=== PATIENT | male | born 1935 | race Caucasian/White ===

== ENCOUNTER 2017-02-28 07:03 | Inpatient (IN) ==
--- NOTE | 2017-02-22 11:46 | EKG Report ---
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
[2017-02-22 12:18] LABS: Basophils # 0.1 10*3/uL (0.0-0.2); Basophils % 0.8 % (0.0-0.8); Eosinophils # 0.3 10*3/uL (0.0-0.87); Eosinophils % 5.1 % (0.00-10.9); Hematocrit 38.6 VOL% (42.0-52.0); Hemoglobin 13.1 GM/DL (14.0-18.0); Immature Granulocytes % 0.2 %; Immature Granulocytes Absolute 0.01 #; Lymphocytes # 1.5 10*3/uL (1.4-4.0); Lymphocytes % 23.2 % (21.2-54.2); Mean Corpuscular HGB Conc 33.9 GM/DL (32-36); Mean Corpuscular Hemoglobin 31 PG (27-34); Mean Corpuscular Volume 91.7 FL (87-102); Mean Platelet Volume 10.5 FL (9.6-12.0); Monocytes # 0.5 10*3/uL (0.11-0.8); Monocytes % 7.8 % (1.7-12.7); Neutrophils % 62.9 % (38.7-73.9); Platelet Count 143 T/CUMM (130-400); Red Blood Count 4.21 MC/CUMM (3.8-5.5); Red Cell Distribution Width 14.6 % (9.3-17.3); White Blood Count 6.3 T/CUMM (4-12)
[2017-02-22 13:04] LABS: Albumin 3.7 G/DL (3.4-5.0); Bilirubin,Total 0.6 MG/DL (0.2-1.0); Calcium 8.9 MG/DL (8.5-10.1); Total Protein 7.7 G/DL (6.4-8.3)
[2017-02-22 13:05] LABS: Osmolality,Calculated 281.3 MOS/KG (273-304); Potassium 4.1 MMOL/L (3.5-5.1)
[2017-02-28] MEDS ORDERED: LORazepam 1 MG TABLET PO ONE (07:15)
[2017-02-28 07:29] LABS: INR 1.1; PT Patient Result 11.7 SECS
--- NOTE | 2017-02-28 07:53 | History and Physical Update ---
History and Physical Update - Physical Exam History and Physical Changes: We note an area that appears to be perhaps an insect bite that has been scratched on the anterior midline of the neck this will be away from the incision it does not appear to be actively infection nor does it appear to be anything associated with shingles. I will proceed with the surgery today a left carotid endarterectomy
[2017-02-28] MEDS ORDERED: ceFAZolin 1,000 MG VIAL ONE (08:02)
[2017-02-28] MEDS ORDERED: SODIUM CHLORIDE 0.9% 100 ML IV ONE (08:03)
[2017-02-28] MEDS ORDERED: LORazepam 1 MG TABLET ONE ×2 (08:03→08:24)
--- NOTE | 2017-02-28 08:43 | XRay Report ---
History: COPD. Pacemaker Date: 02/28/2017 Study: Chest x-ray AP portable Comparison exam: March 26, 2009 chest x-ray The cardiac silhouette is borderline prominent. There is no mediastinal mass. The patient is status post prior median sternotomy. A left subclavian dual-lead transvenous pacemaker is in place and is generally intact. There is no gross pleural effusion. There are some probable scattered emphysematous changes. There is no acute infiltrate. The osseous structures are similar. Impression: No definite acute process compared to the previous study. Pacemaker as before PROCEDURE INTERPRETED AT [facility] DEPARTMENT OF RADIOLOGY Final Report Signed by: Dr. Raisa Ewing
[2017-02-28] MEDS: LACTATED RINGERS 1,000 ML IV SCH ×3 (09:11→21:14)
[2017-02-28] MEDS ORDERED: VANCOMYCIN 500 MG VIAL ONE (09:25)
[2017-02-28] MEDS ORDERED: HEPARIN 5,000 UNIT/1 ML VIAL ONE (09:25)
[2017-02-28] MEDS ORDERED: MIDAZOLAM 2 MG/2 ML VIAL ONE (09:42)
[2017-02-28] MEDS ORDERED: MIDAZOLAM 2 MG/2 ML VIAL IV ONE (09:59)
[2017-02-28] MEDS ORDERED: PROPOFOL 200 MG/20 ML VIAL IV ONE (10:50)
[2017-02-28] MEDS ORDERED: NEOSTIGMINE 10 MG/10 ML VIAL ONE (10:50)
[2017-02-28] MEDS ORDERED: LIDOCAINE 1% 5 ML VIAL ONE (10:50)
[2017-02-28] MEDS ORDERED: SUCCINYLCHOLINE 200 MG/10 ML VIAL ONE (10:50)
[2017-02-28] MEDS ORDERED: ROCURONIUM 100 MG/10 ML VIAL IV ONE (10:50)
[2017-02-28] MEDS ORDERED: PHENYLEPHRINE 20 MG/250 ML PREMIX IV ONE (10:50)
[2017-02-28] MEDS ORDERED: HEPARIN 10,000 UNIT/10 ML VIAL ONE (10:50)
[2017-02-28] MEDS ORDERED: NITROGLYCERIN 50 MG/250 ML BOTTLE IV ONE (10:50)
[2017-02-28] MEDS ORDERED: ONDANSETRON 4 MG/2 ML VIAL ONE (10:50)
[2017-02-28] MEDS ORDERED: GLYCOPYRROLATE 0.4 MG/2 ML VIAL ONE (10:50)
[2017-02-28] MEDS ORDERED: DEXTROSE 50% 25 GM/50 ML VIAL IV PRN (12:07)
[2017-02-28] MEDS ORDERED: DOPamine 800 MG/250 ML PREMIX IV PRN (12:07)
[2017-02-28] MEDS ORDERED: HYDROmorphone 2 MG/1 ML VIAL IV PRN (12:07)
[2017-02-28] MEDS ORDERED: PROMETHAZINE 25 MG/1 ML VIAL IM PRN (12:07)
[2017-02-28] MEDS ORDERED: GLUCAGON 1 MG VIAL IM PRN (12:07)
[2017-02-28] MEDS ORDERED: oxyCODONE/ACETAMINOPHEN 5-325 MG TABLET PO PRN ×2 (12:07)
--- NOTE | 2017-02-28 12:15 | Operative Note ---
Date of procedure: 02/28/17 Procedure: Dr. Laws operative report Jose Galicia. 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 I have offered left carotid endarterectomy have explained the alternatives risks and complications which he understands and accepts Description of the procedure: After the induction of general endotracheal anesthesia the patient was placed in supine position with his neck modestly extended and turned to the right his left neck is prepped with ChloraPrep and Ioban and draped in the usual fashion I made a somewhat horizontal incision in a skin crease below the angle of the mandible this is carried into the subcu cutaneous tissue in the subplatysmal space I then dissected along the anterior border of the sternocleidomastoid muscle anterior facial vein was doubly ligated hemoclipped and divided I then dissected anterior to the internal jugular vein locating the common carotid artery which was controlled with a maxi vessel loop. Patient received 5000 units of intravenous heparin and dissection was carried along the common carotid past the diseased bifurcation to the more normal distal internal and external carotid arteries these were controlled with Vesseloops as well hypoglossal nerve was identified and protected as was the ansa hypoglossi. With adequate anticoagulation the vessel loops were brought up to control the artery and a longitudinal arteriotomy was made from the common carotid through the diseased bifurcation to the more normal distal internal carotid artery and in-line Doshi-Inahara shunt was placed into the internal carotid backflush noting a good back pressure then placed into the common carotid to reestablish flow. My standard endarterectomy was carried out removing the diseased intima media from the carotid bifurcation it feathered out very nicely on both internal and external carotid arteries loose flaps of medial were removed under loupe magnification and the endarterectomized segment was flushed again with heparinized saline. Bovine pericardial patch was used to close the arteriotomy with a running 5-0 Prolene suture again under loupe magnification this was continued until we were ready to remove the shunt shunt was removed backflushing internal/external and flushing again with heparinized saline with the arteriotomy closed flow was initiated from the common carotid into the external and then restored into the internal carotid. Doppler flow in both vessels were quite good there was a bleeding site on the upper and that was oversewn with a 6-0 Prolene suture. Heparin was partially reversed with 25 mg of protamine due to oozing from tissue edges and the patient's chronic Coumadin use I used Tisseel to further seal all tissue areas this was then irrigated drain with 1/4 inch Linn drain the platysma was closed with 3-0 Monocryl skin clips used to close skin blood loss 150 cc sponge needle and his counts correct patient was taken to recovery in stable condition Surgeon / Physician: Joe Laws Results - Labs CBC & BMP: 02/22/17 12:13 02/22/17 12:13 Discharge Plan - Discharge Medications No Action Loratadine 10 mg PO DAILY Atenolol 50 mg PO DAILY Cholecalciferol (Vitamin D3) [Vitamin D3] 2,000 unit PO DAILY Rosuvastatin Calcium [Crestor] 40 mg PO DAILY Warfarin [Coumadin] 7.5 mg PO DAILY@1800 Ferrous Sulfate Tab [Feosol Original Tab] 325 mg PO DAILY Acetaminophen Tab [Tylenol Tab] 500 mg PO DIRECTED PRN PRN Reason: Pain Zaleplon 5 mg PO DAILY - Follow Up or Referral - Forms/Instructions
[2017-02-28] MEDS ORDERED: ACETAMINOPHEN 500 MG TABLET PO PRN (12:30)
[2017-02-28] MEDS ORDERED: LACTATED RINGERS 1,000 ML IV ONE (12:31)
[2017-02-28] MEDS ORDERED: SEVOFLURANE 1 UNIT/15 MINUTE INH ONE (12:31)
[2017-02-28] MEDS ORDERED: fentaNYL 100 MCG/2 ML VIAL ONE (12:31)
--- NOTE | 2017-02-28 13:32 | Anesthesia Post-Op ---
Anesthesia Post OP - Post Ansesthetic Evaluation Patient seen in post op: Yes Resp: within normal limits CV: within normal limits Mental: within normal limits Temp: within normal limits Cwat-Dv-Nmoeuhudf: within normal limits Nausea and Vomiting: within normal limits Pain: within normal limits
[2017-02-28] MEDS: CLOPIDOGREL 75 MG TABLET PO SCH (14:13)
[2017-02-28] MEDS: ASPIRIN EC 81 MG TABLET PO SCH (14:15)
[2017-02-28] MEDS: ATENOLOL 50 MG TABLET PO SCH (14:15)
[2017-02-28] MEDS: FERROUS SULFATE 325 MG TABLET PO SCH ×2 (15:31→20:34)
[2017-02-28] MEDS ORDERED: BENZOCAINE/MENTHOL LOZENGE 18/BOX PO PRN (16:40)
[2017-02-28] MEDS: WARFARIN 7.5 MG TABLET PO SCH (18:00)
[2017-02-28] MEDS: HYDROmorphone 2 MG/1 ML VIAL IV PRN ×2 (18:16→23:11)
[2017-02-28] MEDS ORDERED: NITROPRUSSIDE 50 MG/2 ML VIAL ONE (19:15)
[2017-02-28] MEDS: NITROPRUSSIDE 100 MG in DEXTROSE 5% 246 ML IV SCH ×2 (19:23→22:52)
[2017-03-01] MEDS: ONDANSETRON 4 MG/2 ML VIAL IV PRN ×2 (00:01→09:55)
[2017-03-01] MEDS: NALOXONE 0.4 MG/ML VIAL IV PRN ×3 (00:03→04:19)
[2017-03-01] MEDS ORDERED: METOPROLOL TARTRATE 5 MG/5 ML VIAL IV ONE (00:25)
[2017-03-01] MEDS ORDERED: NITROPRUSSIDE 50 MG/2 ML VIAL ONE (00:43)
[2017-03-01] MEDS: NITROPRUSSIDE 100 MG in DEXTROSE 5% 246 ML IV SCH ×4 (00:47→09:30)
--- NOTE | 2017-03-01 05:31 | Event Note ---
Mr. Galicia required extra night pride and the Lopressor during the night for blood pressure control and has become quite somnolent this morning after receiving Phenergan last night for nausea. 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 I have looked at this with the SonoSite and have asked regular ultrasonography to come in and review the carotid and appears to be widely patent good arterial flow. I think at this point in time the somnolence is a result of Phenergan and we will simply hold off on narcotics and Phenergan until he awakens more fully.
--- NOTE | 2017-03-01 06:32 | Ultrasound Report ---
Exam: US carotid duplex LT Date: 03/01/2017 4:58 AM Indication: Postop left carotid endarterectomy evaluate for thrombosis Findings: Grayscale color flow analysis and spectral analysis imaging was performed with image stored and captured. Left: Flow velocities centimeters per second Common carotid artery: 178 Proximal ICA: 256 Distal ICA: 191 External carotid artery: 250 Vertebral artery: 339 ICA/CCA ratio: 1.4 Normal color flow present. Normal wave form analysis Impression: 1. No obvious thrombosis present. Patency of the internal/external carotid artery and common carotid artery. No high-grade stenosis or occlusion present. Today studies were performed utilizing indirect NASCET criteria The ultrasound images were stored and captured PROCEDURE INTERPRETED AT [facility] DEPARTMENT OF RADIOLOGY Final Report Signed by: Dr. Refugio Espinoza
[2017-03-01] MEDS: LACTATED RINGERS 1,000 ML IV SCH ×4 (06:41→13:15)
--- NOTE | 2017-03-01 07:54 | Cardiology Progress Note ---
Cardiology - PN: Subj Interval history: Cardiology note 81-year-old man postop day #1 left carotid endarterectomy with bovine pericardial patch. Currently on IV nitrite. Patient is lethargic but arousable and responsive. He received Phenergan during the night for nausea. He follows commands and moves all extremities. Carotid duplex showed good flow at the endarterectomy site. Presently blood pressure 160/60 on low-dose nitrite Telemetry shows sinus rhythm in the 70s O2 sat 99 on 2 L cannula Regular rhythm soft systolic murmur as before. Decreased breath sounds but clear Abdomen nontender No leg edema Glucose 262 Impression postop day #1 left carotid endarterectomy with bovine pericardial patch Lethargy due to Phenergan. 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 I suspect he just needs more time to wake up from the Phenergan. Will follow with you. Exam (Progress Note) - Constitutional Vitals: Period Temp Pulse Resp BP Sys/Webb Pulse Ox Last 24 Hr 97.0 F-100 F 14-90 10-20 114-192/33-76 92-100 Result/EKG - Labs CBC & BMP: 02/22/17 12:13 02/22/17 12:13 Labs: Laboratory Results - last 24 hr 02/28/17 03/01/17 07:14 04:16 INR 1.1 PT Patient/Control Mix 11.7 POC Glucose 262 H Quality Measures - VTE Contraindication to Pharmacological VTE Prophylaxis: High Risk of Bleeding
[2017-03-01] MEDS ORDERED: ZALEPLON 5 MG CAPSULE PO SCH ×2 (09:00→21:00)
[2017-03-01] MEDS: LORATADINE 10 MG TABLET PO SCH (09:08)
[2017-03-01] MEDS: 3 PO SCH (09:08)
[2017-03-01] MEDS: ASPIRIN EC 81 MG TABLET PO SCH (09:08)
[2017-03-01] MEDS: FERROUS SULFATE 325 MG TABLET PO SCH ×3 (09:09→20:09)
[2017-03-01] MEDS: CHOLECALCIFEROL 1,000 UNIT TABLET PO SCH (09:09)
[2017-03-01] MEDS: CLOPIDOGREL 75 MG TABLET PO SCH (09:09)
[2017-03-01] MEDS: ATENOLOL 50 MG TABLET PO SCH (09:09)
--- NOTE | 2017-03-01 12:26 | Pathology Report from [facility] ---
[facility] ACCESSION # : [id number] PATIENT NAME : Jose Garcia ORDERING DR : JANEEN HEATH MD CLINICAL HX: Asymptomatic but high grade left internal carotid artery stenosis POST-OP DX: Same SPECIMEN INFO: Plaque GROSS DESCRIPTION: The specimen is received in formalin labeled with the patients name and consists of an endarectomy measuring 3.5 x 1.3 cm. A customer contact representative section submitted in one cassette following decalcification. DIAGNOSIS FOR JOSE GARCIA: LEFT CAROTID ENDARTERECTOMY: Atheromatous material consistent with atherosclerotic plaque. COLLECTED DATE: 02/28/2017 [facility] REPORT DATE: 03/01/2017 ELECTRONICALLY SIGNED BY: Mark Abrams III, M.D. 03/01/2017 - 8:34:41 MTDTeresita
[2017-03-01] MEDS: NITROPRUSSIDE IV SCH ×2 (13:16→20:10)
[2017-03-01] MEDS: DEXTROSE 5% IV SCH ×2 (13:16→20:10)
[2017-03-01] MEDS ORDERED: ATENOLOL 25 MG TABLET PO ONE (13:18)
[2017-03-01] MEDS ORDERED: hydrALAZINE 20 MG/1 ML VIAL IV PRN (13:19)
[2017-03-01] MEDS: LOSARTAN 50 MG TABLET PO SCH (16:50)
[2017-03-01] MEDS: WARFARIN 7.5 MG TABLET PO SCH (17:02)
[2017-03-01] MEDS: TAMSULOSIN 0.4 MG CAPSULE PO SCH (20:09)
[2017-03-02 04:21] LABS: Basophils % 0.1 % (0.0-0.8); Eosinophils # 0.1 10*3/uL (0.0-0.87); Eosinophils % 0.8 % (0.00-10.9); Hematocrit 30.2 VOL% (42.0-52.0); Hemoglobin 10.2 GM/DL (14.0-18.0); Immature Granulocytes % 0.4 %; Immature Granulocytes Absolute 0.04 #; Lymphocytes # 1.2 10*3/uL (1.4-4.0); Lymphocytes % 13.3 % (21.2-54.2); Mean Corpuscular HGB Conc 33.8 GM/DL (32-36); Mean Corpuscular Hemoglobin 31 PG (27-34); Mean Platelet Volume 10.9 FL (9.6-12.0); Monocytes # 0.8 10*3/uL (0.11-0.8); Monocytes % 9.1 % (1.7-12.7); Neutrophils # 6.9 10*3/uL (1.4-7.4); Neutrophils % 76.3 % (38.7-73.9); Platelet Count 96 T/CUMM (130-400); Red Blood Count 3.32 MC/CUMM (3.8-5.5); Red Cell Distribution Width 14.8 % (9.3-17.3)
[2017-03-02 04:31] LABS: INR 1.2; PT Patient Result 12.5 SECS
[2017-03-02 04:46] LABS: Band Neutrophils 3 % (0-10); Lymphocytes 14 % (20-55); Segmented Neutrophils 78 % (50-85); Total Cells Counted 100
[2017-03-02 04:47] LABS: Platelet Estimate Decreased
[2017-03-02 04:55] LABS: Calcium 8.2 MG/DL (8.5-10.1); Osmolality,Calculated 268.4 MOS/KG (273-304); Potassium 3.8 MMOL/L (3.5-5.1)
--- NOTE | 2017-03-02 07:04 | Cardiology Progress Note ---
Cardiology - PN: Subj Interval history: Cardiology note Postop day #2 left carotid endarterectomy with bovine pericardial patch. Awake alert and responsive today. Telemetry shows sinus rhythm in the 70s O2 sat 96% on room air. Blood pressure 126/56 Regular rhythm no gallop . decreased breath sounds but clear No leg edema Lab data today white count 9.0 hemoglobin 10.2 hematocrit 30.2 INR 1.2 Sodium 133 potassium 3.8 chloride 98 CO2 27 BUN 18 creatinine 1.10 magnesium 2.0 glucose 120 Impression Postop day #2 left carotid endarterectomy with bovine pericardial patch Lethargy due to Phenergan resolved. 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, 2000 Chronic anticoagulation Paroxysmal atrial fibrillation Status post Medtronic dual-chamber pacemaker October 10, 2003 and generator change out January 2011 Hyperlipidemia Hypertension Recent normal Lexiscan cardiac stress test with no scar or ischemia Plan DC IV nipride Atenolol 50 mg daily Cozaar 50 mg daily Exam (Progress Note) - Constitutional Vitals: Period Temp Pulse Resp BP Sys/Webb Pulse Ox Last 24 Hr 98.0 F-100.0 F 61-97 12-26 119-196/45-111 90-99 Result/EKG - Labs CBC & BMP: 03/02/17 04:08 03/02/17 04:08 Labs: Laboratory Results - last 24 hr 03/01/17 03/02/17 03/02/17 11:38 04:08 04:08 WBC 9.0 RBC 3.32 L Hgb 10.2 L Hct 30.2 L MCV 91.0 MCH 31 MCHC 33.8 RDW 14.8 Plt Count 96 L MPV 10.9 Neut % (Auto) 76.3 H Lymph % (Auto) 13.3 L Perkins % (Auto) 9.1 Eos % (Auto) 0.8 Baso % (Auto) 0.1 Neut # (Auto) 6.9 Lymph # (Auto) 1.2 L Perkins # (Auto) 0.8 Eos # (Auto) 0.1 Baso # (Auto) 0.0 Total Counted 100 Immature Gran % 0.4 Nucleated RBC % 0.0 Immature Gran # 0.04 Segmented Neutrophils 78 Band Neutrophils 3 Lymphocytes 14 L Monocytes 4 Basophils 1.0 H Nucleated RBCs # 0.00 Platelet Estimate Decreased Pappenheimer Bodies Front End Software Developer INR PT Patient/Control Mix Sodium 133 L Potassium 3.8 Chloride 98 Carbon Dioxide 27 Anion Gap 11.8 BUN 18 Creatinine 1.10 GFR Calculation 81 BUN/Creatinine Ratio 16.00 Glucose 120 H POC Glucose 133 H Calculated Osmolality 268.4 L Calcium 8.2 L Magnesium 2.0 03/02/17 04:08 WBC RBC Hgb Hct MCV MCH MCHC RDW Plt Count MPV Neut % (Auto) Lymph % (Auto) Perkins % (Auto) Eos % (Auto) Baso % (Auto) Neut # (Auto) Lymph # (Auto) Perkins # (Auto) Eos # (Auto) Baso # (Auto) Total Counted Immature Gran % Nucleated RBC % Immature Gran # Segmented Neutrophils Band Neutrophils Lymphocytes Monocytes Basophils Nucleated RBCs # Platelet Estimate Pappenheimer Bodies INR 1.2 PT Patient/Control Mix 12.5 Sodium Potassium Chloride Carbon Dioxide Anion Gap BUN Creatinine GFR Calculation BUN/Creatinine Ratio Glucose POC Glucose Calculated Osmolality Calcium Magnesium Quality Measures - VTE Contraindication to Pharmacological VTE Prophylaxis: High Risk of Bleeding
[2017-03-02] MEDS: LOSARTAN 50 MG TABLET PO SCH (08:17)
[2017-03-02] MEDS: CHOLECALCIFEROL 1,000 UNIT TABLET PO SCH (08:18)
[2017-03-02] MEDS: FERROUS SULFATE 325 MG TABLET PO SCH ×3 (08:18→21:06)
[2017-03-02] MEDS: 3 PO SCH (08:18)
[2017-03-02] MEDS: ASPIRIN EC 81 MG TABLET PO SCH (08:18)
[2017-03-02] MEDS: ATENOLOL 50 MG TABLET PO SCH (08:18)
[2017-03-02] MEDS: LORATADINE 10 MG TABLET PO SCH (08:18)
[2017-03-02] MEDS: CLOPIDOGREL 75 MG TABLET PO SCH (08:18)
--- NOTE | 2017-03-02 08:43 | Event Note ---
Mr. 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 I will move him upstairs today and start physical therapy to be sure he can ambulate adequately before being discharged home
--- NOTE | 2017-03-02 14:17 | Event Note ---
Mr. Galicia is doing fairly well but is really not walking around the room much yet I am going to keep him overnight to be certain he is able to ambulate before being discharged
[2017-03-02] MEDS: WARFARIN 7.5 MG TABLET PO SCH (18:26)
[2017-03-02] MEDS: TAMSULOSIN 0.4 MG CAPSULE PO SCH (21:06)
--- NOTE | 2017-03-03 08:15 | Discharge Summary ---
Hospital Course - Hospital Course Hospital Course: Jose Galicia 81-year-old man was admitted for high-grade left internal carotid artery stenosis. He was treated with a left carotid endarterectomy seem to be doing well but had nausea hypertension on the night of surgery received Phenergan and became quite lethargic this brought concerns for occlusion of the carotid therefore ultrasound was repeated and shows artery widely patent. As the Phenergan wore off he became back to normal with no neurologic deficit he is now been followed overnight and is ambulatory in the kamara his neck looks good with no hematoma is tolerating his diet and doing well he will be discharged home with the only new med 81 mg aspirin and he is resuming his Coumadin at 7.5 mg daily as well as his other meds. I discussed with him exercise restrictions wound care diet expected recovery and long-term follow-up plan I will see him in the office next week for staple removal Specialty Discharge - Follow Up or Referrals Follow up with: Joe Laws MD [Physician] - 03/07/17 2:30 pm Discharge Plan - Discharge Data Disposition: Disch To Home/Self Care Condition at Discharge: Stable Discharge Diet: advance to your usual diet Activity: resume usual activities as tolerated Hygiene: may shower Weight Bearing at Discharge: full weight bearing Driving: not until seen by doctor Contact your physician if you experience:: fever over 101, Nausea/Vomiting, Bleeding - Discharge Medications No Action Loratadine 10 mg PO DAILY Atenolol 50 mg PO DAILY Cholecalciferol (Vitamin D3) [Vitamin D3] 2,000 unit PO DAILY Rosuvastatin Calcium [Crestor] 10 mg PO BEDTIME Warfarin [Coumadin] 7.5 mg PO DAILY@1800 Ferrous Sulfate Tab [Feosol Original Tab] 325 mg PO BID Acetaminophen Tab [Tylenol Tab] 500 mg PO DIRECTED PRN PRN Reason: Pain Zaleplon 5 mg PO BEDTIME Aspirin [Ecotrin] 81 mg PO DAILY - Follow Up or Referral Follow Up: Joe Laws MD [Physician] - 03/07/17 2:30 pm - Forms/Instructions Exam - Constitutional Vitals: Period Temp Pulse Resp BP Sys/Webb Pulse Ox Last 24 Hr 99.0 F-100.4 F 61-74 18-20 120-170/50-75 93-97 DS: Provider Date of admission: 02/28/17 07:03 Primary care physician: Lexx White MD Attending physician on admission: Joe Laws MD Consults: 03/02/17 12:39 Consult to Physical Therapy [CONS] Routine Reason for Physical Therapy: Ambulation Discharging clinician: Joe Laws MD
[2017-03-03] MEDS: 3 PO SCH (08:45)
[2017-03-03] MEDS: FERROUS SULFATE 325 MG TABLET PO SCH (08:45)
[2017-03-03] MEDS: LORATADINE 10 MG TABLET PO SCH (08:46)
[2017-03-03] MEDS: LOSARTAN 50 MG TABLET PO SCH (08:46)
[2017-03-03] MEDS: CHOLECALCIFEROL 1,000 UNIT TABLET PO SCH (08:46)
[2017-03-03] MEDS: ASPIRIN EC 81 MG TABLET PO SCH (08:46)
[2017-03-03] MEDS: ATENOLOL 50 MG TABLET PO SCH (08:46)
[2017-03-03] MEDS: CLOPIDOGREL 75 MG TABLET PO SCH (08:46)
[2017-03-03 11:21] VITALS: BP 132/64
--- NOTE | 2017-03-03 13:42 | Cardiology Progress Note ---
Cardiology - PN: Subj Interval history: Cardiology note postop day #3 Left carotid endarterectomy with bovine pericardial patch Awake alert and comfortable. Regular rhythm. No gallop. Clear lungs. No leg edema. Blood pressure 136/80 Plan Home today Office visit with EKG 3 weeks Discussed with Deonna and daughter Melissa Exam (Progress Note) - Constitutional Vitals: Period Temp Pulse Resp BP Sys/Webb Pulse Ox Last 24 Hr 99.0 F-100.4 F 58-74 16-20 132-167/52-73 93-95 Result/EKG - Labs CBC & BMP: 03/02/17 04:08 03/02/17 04:08 Quality Measures - VTE Contraindication to Pharmacological VTE Prophylaxis: High Risk of Bleeding Specialty Discharge - Follow Up or Referrals Follow up with: Joe Laws MD [Physician] - 03/07/17 2:30 pm Kobe Pratt MD [Physician] - 03/09/17 2:10 pm
== END 2017-03-03 14:11 | disposition home or self-care (01) | DRG 39 ==
LOC: N.SDSINP 07:03 → N.ICU 11:57 → N.3E 03-02 11:54
PROVIDERS: ADMIT Surgery; ATTEND Surgery

== ENCOUNTER 2017-04-21 13:26 | Inpatient (IN) ==
--- NOTE | 2017-04-21 13:58 | EKG Report ---
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
[2017-04-21 14:25] LABS: Basophils % 0.4 % (0.0-0.8); Eosinophils # 0.4 10*3/uL (0.0-0.87); Eosinophils % 5.9 % (0.00-10.9); Hematocrit 25.8 VOL% (42.0-52.0); Hemoglobin 7.9 GM/DL (14.0-18.0); Immature Granulocytes % 0.3 %; Immature Granulocytes Absolute 0.02 #; Lymphocytes # 1.1 10*3/uL (1.4-4.0); Lymphocytes % 16.2 % (21.2-54.2); Mean Corpuscular HGB Conc 30.6 GM/DL (32-36); Mean Corpuscular Hemoglobin 29 PG (27-34); Mean Corpuscular Volume 93.8 FL (87-102); Mean Platelet Volume 10.4 FL (9.6-12.0); Monocytes # 0.6 10*3/uL (0.11-0.8); Monocytes % 8.5 % (1.7-12.7); Neutrophils # 4.7 10*3/uL (1.4-7.4); Neutrophils % 68.7 % (38.7-73.9); Platelet Count 197 T/CUMM (130-400); Red Blood Count 2.75 MC/CUMM (3.8-5.5); Red Cell Distribution Width 15.6 % (9.3-17.3); White Blood Count 6.9 T/CUMM (4-12)
[2017-04-21 14:45] LABS: Partial Thromboplastin Time 34.1 SECS (0-40)
[2017-04-21 14:46] LABS: PT Patient Result 21.8 SECS
[2017-04-21 15:03] LABS: Bilirubin,Total 0.5 MG/DL (0.2-1.0); Calcium 8.8 MG/DL (8.5-10.1); Osmolality,Calculated 275.8 MOS/KG (273-304); Potassium 3.9 MMOL/L (3.5-5.1)
[2017-04-21 15:05] LABS: Troponin I Only 0.026 NG/ML (0.00-0.045)
[2017-04-21] MEDS ORDERED: ONDANSETRON 4 MG/2 ML VIAL IV STA (15:05)
[2017-04-21] MEDS ORDERED: ALBUTEROL/IPRATROPIUM 3 ML NEB RESP TX STA (15:05)
[2017-04-21] MEDS ORDERED: methylPREDNISolone SOD SUC 125 MG/2 ML VIAL IV STA (15:05)
[2017-04-21] MEDS ORDERED: FUROSEMIDE 100 MG/10 ML VIAL IV STA (15:05)
[2017-04-21] MEDS ORDERED: MORPHINE 2 MG/1 ML SYRINGE IV STA (15:05)
[2017-04-21] MEDS ORDERED: MORPHINE 2 MG/1 ML SYRINGE ONE (15:10)
[2017-04-21] MEDS ORDERED: FUROSEMIDE 20 MG/2 ML VIAL ONE (15:10)
[2017-04-21] MEDS ORDERED: ONDANSETRON 4 MG/2 ML VIAL ONE (15:10)
[2017-04-21] MEDS ORDERED: FUROSEMIDE 40 MG/4 ML VIAL ONE (15:10)
[2017-04-21] MEDS ORDERED: methylPREDNISolone SOD SUC 125 MG/2 ML VIAL ONE (15:11)
--- NOTE | 2017-04-21 15:36 | CT Report ---
Referring physician: Ramin Holman Exam: CT brain without contrast Date: 04/21/2017 Comparison: None Reason: Head injury, fall, patient on anticoagulants Technique: Axial images of the head were obtained without the use of contrast. Total DLP was 970.10 mGy*cm. Findings: No hydrocephalus or midline shift is present. There is no evidence of an acute infarction, recent intracranial hemorrhage or abnormal mass effect. Diffuse atrophy and cerebral hypodensities with benign calcifications. Arterial calcifications. The osseous structures appear intact. The mastoid air cells and visualized paranasal sinuses are clear. Impression: No acute intracranial abnormality is identified. The CT exam was performed using one or more of the following dose reduction techniques: Automated exposure control and adjustment of the mA and/or kV according to patient size. PROCEDURE INTERPRETED AT [facility] DEPARTMENT OF RADIOLOGY Final Report Signed by: Dr. Nilda Perry
--- NOTE | 2017-04-21 15:38 | XRay Report ---
XR chest 2V Date: 04/21/2017 3:05 PM History: Shortness of breath Comparison: 02/28/2017 Technique: PA and lateral chest Findings: Persistent cardiomegaly in patient with prior median sternotomy and left subclavian atrioventricular pacemaker. The lungs are overexpanded with chronic scarring. Progressive parenchymal findings at the right lung base. Stable mediastinum with degenerative changes. Impression: COPD with chronic scarring in patient with prior median sternotomy and left subclavian atrioventricular permanent pacemaker. Progressive atelectasis/infiltration/edema in the right lower lobe with small right pleural effusion. Ill-defined density in this location follow-up chest x-ray is recommended to document clearing. PROCEDURE INTERPRETED AT [facility] DEPARTMENT OF RADIOLOGY Final Report Signed by: Dr. Nilda Perry
[2017-04-21 15:53] LABS: Basophils % 0.3 % (0.0-0.8); Eosinophils # 0.3 10*3/uL (0.0-0.87); Eosinophils % 4.6 % (0.00-10.9); Hematocrit 25.7 VOL% (42.0-52.0); Immature Granulocytes % 0.3 %; Immature Granulocytes Absolute 0.02 #; Lymphocytes # 1.1 10*3/uL (1.4-4.0); Lymphocytes % 16.8 % (21.2-54.2); Mean Corpuscular HGB Conc 31.1 GM/DL (32-36); Mean Corpuscular Hemoglobin 29 PG (27-34); Mean Corpuscular Volume 94.1 FL (87-102); Mean Platelet Volume 10.2 FL (9.6-12.0); Monocytes # 0.5 10*3/uL (0.11-0.8); Monocytes % 7.5 % (1.7-12.7); Neutrophils # 4.6 10*3/uL (1.4-7.4); Neutrophils % 70.5 % (38.7-73.9); Platelet Count 202 T/CUMM (130-400); Red Blood Count 2.73 MC/CUMM (3.8-5.5); Red Cell Distribution Width 15.6 % (9.3-17.3); White Blood Count 6.5 T/CUMM (4-12)
--- NOTE | 2017-04-21 15:56 | Emergency Department Note ---
Lance Gilbert Brittany, am scribing for, and in the presence of, Ramin Holman MD 14:55. River Gilbert Charles R, MD, personally performed the services described in this documentation, ascribed by Judie Lucas in my presence, and it is both accurate and complete [id number] . Arrival - Arrival Chief Complaint: Shortness of Breath Stated Complaint: SHORT OF BREATH ED Nursing Triage Note: PT C/O SHORTNESS OF BREATH. STATES HE FELL 4 DAYS AGO AND LAID IN THE FLOOR 3-4 HOURS. PT STATES EVER SINCE THEN HE HAS HAD TROUBLE CATCHING HIS BREATH. DENIES PAIN. Mode of Arrival: Wheelchair Limitations: No Limitations Source: Patient, RN Notes Reviewed - History of Present Illness HPI Narrative: Patient is a 81 y/o male presenting to the ED with c/o shortness of breath which began about 4 days ago. Patient reports that he took a fall 4 days ago and afterwards laid in the floor for 3-4 hours, scooting himself closer to the tub to get himself up. Denies hitting his head or chest in the fall. Since this fall patient has been having trouble catching his breath, described as "when you 've ran and ran and can't catch your breath." Patient took a diuretic last night and this morning. He denies having any diaphoresis, chest pain, headache, nausea, vomiting, neck pain, arm pain, or back pain. Patient denies having any pain with deep breaths. Patient did have an episode like this in the past where he became short of breath and family at the bedside states his Pacemaker had went completely out. Family states that he has not displayed confusion. Patient currently takes Coumadin. PCP is Dr. Jacob White. PMHx of Atrial Fibrillation, Pacemaker, Dyslipidemia, BPH, Anemia, Skin CA, Prostate CA, CABG, Appendectomy, EGD, TKR. Onset (ago): day(s) (4) Consistency: constant Allergies/Adverse Reactions: Allergies Allergy/AdvReac Type Severity Reaction Status Date / Time latex Allergy Severe BLISTER Verified 04/21/17 13:47 Home Medications: Home Medications Medication Instructions Recorded Confirmed Type Atenolol 50 mg PO QAM 07/28/16 04/21/17 History Cholecalciferol (Vitamin D3) 2,000 unit PO QAM 07/28/16 04/21/17 History [Vitamin D3] Loratadine 10 mg PO QAM 07/28/16 04/21/17 History Rosuvastatin Calcium [Crestor] 10 mg PO QAM 07/28/16 04/21/17 History Warfarin [Coumadin] 5 mg PO DAILY@1800 07/28/16 04/21/17 History Acetaminophen Tab [Tylenol Tab] 500 mg PO BEDTIME PRN 02/22/17 04/21/17 History Ferrous Sulfate Tab [Feosol 325 mg PO BID 02/22/17 04/21/17 History Original Tab] Zaleplon 5 mg PO BEDTIME 02/22/17 04/21/17 History Review of System - Review of System 12 point system: reviewed and no additional remarkable complaints except as stated - Review of System Constitutional: Absent: diaphoresis Respiratory: Present: respiratory distress Cardiovascular: Absent: chest pain Gastrointestinal: Absent: nausea, vomiting Musculoskeletal: Absent: arm pain, back pain, neck pain Medical,Surgical,& Family Hx - Medical History Cardio: History of: Cardiac Dysrhythmia (A FIB HX), Pacemaker (DR JIMENEZ X2 2007 ) No history of: Hypertension Neurology: No history of: Seizures HEENT: History of: Eye Problem (READING GLASSES), Dental Problems (UPPER DENTURE ; PARTIAL LOWER), HEENT Problems (NASAL TUMOR REMOVED 2016. DR LEONG.) Endocrine: History of: Dyslipidemia Rheumatology: History of;: Rheumatological Problems (LOWER BACK) Respiratory: No history of: Respiratory Problems (FLU VAC- NO; PNEU VAC- YES 2015) Genitourinary: History of: Bladder Problem, Prostate Problems (BPH DR JAMISON; PAST HX PROSTATE CA AND RADIATION (1999)) Gastrointestinal: History of: GI Problems (CONSTIPATION.) Hematology: History of: Anemia Other: History of: Cancer (SKIN CA NASAL DORSUM RIGHT, PROSTATE CA.) - Surgical History Cardiac Surgeries: Sugical HX of: Cardiac Surgery (CABG 2000 BYPASS X5) HEENT Surgeries: Surgical HX of: Eye Surgery ([facility] CATARACT SURGERY) Abdominal Surgeries: Surgical HX of: Appendectomy (AT AGE 8.), Colonoscopy, EGD Orthopedic Surgeries: Surgical HX of;: Implanted Devices (PACEMAKER), Total Knee Replacement (LEFT) - Family History Family History: Reports;: Family Diabetes (MOM, both sisters) - Social History Smoking Status: Former smoker Frequency of Alcohol Use: None Type of Drug Use: None Exam Vital Signs: Vital Signs Temperature 99.0 F 04/21/17 13:43 Pulse Rate 76 04/21/17 15:28 Respiratory Rate 18 04/21/17 15:28 Blood Pressure 164/49 04/21/17 13:43 O2 Sat by Pulse Oximetry 98 04/21/17 15:28 - General General appearance: alert, in distress (actively short of breath) - Head Head exam: Present: atraumatic, normocephalic, normal inspection - Eye Eye exam: Present: normal appearance, PERRL, EOMI - ENT ENT exam: Present: normal exam, normal oropharynx - Neck Neck exam: Present: normal inspection, full ROM, trachea midline - Chest Chest inspection: Present: normal inspection, symmetric chest wall rise - Respiratory Respiratory exam: Present: rales (rales to bilateral lung hazel), respiratory distress (speaks in short 1-2 word sentences), wheezes (audible wheezing). Absent: normal lung sounds bilaterally - Cardiovascular Cardiovascular exam: Present: regular rate, normal rhythm, normal heart sounds - Abdominal Exam Abdominal exam: Present: soft, normal bowel sounds. Absent: tenderness - Extremities Exam Extremities exam: Present: pedal edema (2+ edema to BLE) - Back Exam Back exam: Present: normal inspection - Neurological Exam Neurological exam: Present: alert, oriented X3, CN II-XII intact. Absent: motor sensory deficit - Psychiatric Psychiatric exam: Present: normal affect, normal mood - Skin Skin exam: Present: warm, dry Course - Consultations Consultation #1: Dr. Lexx White will admit patient Time: 16:37 Results - Labs CBC & BMP: 04/21/17 15:43 04/21/17 14:15 Lab Results: I have reviewed the patients labs Labs: Laboratory Tests 04/21/17 14:15 WBC 6.9 RBC 2.75 L Hgb 7.9 L Hct 25.8 L MCHC 30.6 L Plt Count 197 Lymph % (Auto) 16.2 L Lymph # (Auto) 1.1 L Laboratory Tests 04/21/17 04/21/17 04/21/17 14:15 14:15 14:15 WBC 6.9 RBC 2.75 L Hgb 7.9 L Hct 25.8 L MCHC 30.6 L Plt Count 197 Lymph % (Auto) 16.2 L Lymph # (Auto) 1.1 L INR 2.0 PT Patient/Control Mix 21.8 D Circ Anticoag PTT 34.1 Sodium 137 Potassium 3.9 Chloride 102 Carbon Dioxide 29 BUN 18 Creatinine 1.30 Glucose 121 H AST 39 H Albumin 3.0 L Globulin 5.0 H Albumin/Globulin Ratio 0.6 L Laboratory Tests 04/21/17 14:15 Total Creatine Kinase 319 H CK-MB (CK-2) 1.2 Troponin I 0.026 Laboratory Tests 04/21/17 15:43 WBC 6.5 RBC 2.73 L Hgb 8.0 L Hct 25.7 L MCHC 31.1 L Plt Count 202 Lymph % (Auto) 16.8 L Lymph # (Auto) 1.1 L Laboratory Tests 04/21/17 15:43 INR 1.9 PT Patient/Control Mix 20.5 Laboratory Tests 04/21/17 15:43 Magnesium 2.5 H Troponin I 0.026 Laboratory Tests 04/21/17 15:43 B-Natriuretic Peptide 190 H - Diagnostic Findings Procedure: Chest x-ray: report reviewed by me (COPD with chronic scarring in patient with prior median sternotomy and left subclavian atrioventricular permanent pacemaker. Progressive atelectasis/infiltration/edema in the right lower lobe with small right pleural effusion. Ill-defined density in this location follow-up chest x-ray is recommended to document clearing. ), CT: report reviewed by me (CT Head: No acute intracranial abnormality is identified. ) Disposition Clinical Impression: Fall, Acute dyspnea, CHF (congestive heart failure), A-fib, Right lower lobe pleural effusion, Edema extremities, Anemia, Chronic anticoagulation Case discussed with: patient, patient's family Disposition: Still a Patient Condition: Stable Time of Disposition: 16:59
[2017-04-21 16:05] LABS: INR 1.9; PT Patient Result 20.5 SECS
[2017-04-21] MEDS ORDERED: cefTRIAXone 1,000 MG in SODIUM CHLORIDE 0.9% 100 ML IV STA (16:19)
[2017-04-21 16:21] LABS: Magnesium 2.5 MG/DL (1.8-2.4); Troponin I Only 0.026 NG/ML (0.00-0.045)
[2017-04-21] MEDS ORDERED: cefTRIAXone 1,000 MG VIAL ONE (17:15)
[2017-04-21] MEDS ORDERED: ONDANSETRON 4 MG/2 ML VIAL IV PRN (19:31)
[2017-04-21] MEDS ORDERED: ACETAMINOPHEN 500 MG TABLET PO PRN (19:31)
[2017-04-21] MEDS ORDERED: ACETAMINOPHEN 325 MG TABLET PO PRN (19:31)
[2017-04-21] MEDS ORDERED: ALBUTEROL/IPRATROPIUM 3 ML NEB RESP TX PRN (19:31)
[2017-04-21] MEDS ORDERED: MORPHINE 2 MG/1 ML SYRINGE IV PRN (19:31)
[2017-04-21 20:28] LABS: Basophils % 0.1 % (0.0-0.8); Eosinophils % 0.1 % (0.00-10.9); Hematocrit 25.2 VOL% (42.0-52.0); Hemoglobin 7.9 GM/DL (14.0-18.0); Immature Granulocytes % 0.6 %; Immature Granulocytes Absolute 0.04 #; Lymphocytes # 0.6 10*3/uL (1.4-4.0); Mean Corpuscular HGB Conc 31.3 GM/DL (32-36); Mean Corpuscular Hemoglobin 29 PG (27-34); Mean Corpuscular Volume 92.3 FL (87-102); Mean Platelet Volume 10.9 FL (9.6-12.0); Monocytes # 0.1 10*3/uL (0.11-0.8); Monocytes % 1.1 % (1.7-12.7); Neutrophils # 6.3 10*3/uL (1.4-7.4); Neutrophils % 89.1 % (38.7-73.9); Platelet Count 215 T/CUMM (130-400); Red Blood Count 2.73 MC/CUMM (3.8-5.5); Red Cell Distribution Width 15.6 % (9.3-17.3); White Blood Count 7.1 T/CUMM (4-12)
[2017-04-21] MEDS: WARFARIN 5 MG TABLET PO SCH (21:21)
[2017-04-21] MEDS: cefTRIAXone 1,000 MG in SODIUM CHLORIDE 0.9% 100 ML IV SCH (21:21)
[2017-04-21] MEDS: ZALEPLON 5 MG CAPSULE PO SCH (21:21)
[2017-04-21] MEDS: FERROUS SULFATE 325 MG TABLET PO SCH (21:21)
[2017-04-21] MEDS: DOCUSATE SODIUM 100 MG CAPSULE PO SCH (21:21)
[2017-04-21] MEDS: SODIUM CHLORIDE 0.9% 1,000 ML IV SCH (21:25)
[2017-04-22 06:51] LABS: INR 1.9; PT Patient Result 20.7 SECS
[2017-04-22 07:26] LABS: Albumin 2.8 G/DL (3.4-5.0); Bilirubin,Total 0.4 MG/DL (0.2-1.0); Calcium 8.1 MG/DL (8.5-10.1); Magnesium 2.3 MG/DL (1.8-2.4); Osmolality,Calculated 281.5 MOS/KG (273-304); Potassium 3.7 MMOL/L (3.5-5.1); Total Protein 6.9 G/DL (6.4-8.3)
[2017-04-22 08:01] LABS: % Iron Saturation 37.9 % (18-50)
--- NOTE | 2017-04-22 08:06 | Family Practice History&Phys ---
Assessment and Plan (1) Normocytic anemia Status: Acute Assessment and plan: 04/22/2017: Patient apparently has had the beginnings of workup at the [facility] has been placed on iron supplementation. Will check routine anemia studies and ask Dr. Dutta to see him as well. I think he would benefit from a transfusion. Current Visit: Yes (2) CHF (congestive heart failure) Status: Acute Assessment and plan: 04/22/2017: Echocardiogram has been ordered. Will consult cardiology to see him. He does have permanent pacemaker in place and it appears to be functioning normally. Current Visit: Yes (3) A-fib Status: Chronic Assessment and plan: 04/22/2017: Patient noted to have controlled rate with his atrial fibrillation. He has a therapeutic INR. Current Visit: Yes (4) Chronic anticoagulation Status: Chronic Assessment and plan: 04/22/2017: INR is therapeutic. Current Visit: Yes History of Present Illness Chief complaint: Shortness of breath History of present illness: Mr. Galicia is a 81 year old male Patient 81-year-old gentleman presented emergency room day of admission with increasing shortness of breath, dyspnea on exertion and orthopnea. This been going on for several weeks but finally became severe enough that he decided to come be evaluated. Patient is regular patient at the [facility] and his been evaluated for his anemia. Patient is presently on iron supplement. Patient was found to have hematocrit 25% in the emergency room. Patient states she is not really have any chest pain associated with this with the slightest exertion leads to dyspnea and is unable to lay flat at night due to shortness of breath as well. He denies any neck shoulder arm discomfort associated with this. Patient denies any increased cough, fever or chills. He has never had echocardiogram to his knowledge. He has noticed increased swelling of his lower extremities. Patient was noted to have a relatively normal BNP on admission to the emergency room. Home Medications Medication Instructions Recorded Confirmed Type Atenolol 50 mg PO QAM 07/28/16 04/21/17 History Cholecalciferol (Vitamin D3) 2,000 unit PO QAM 07/28/16 04/21/17 History [Vitamin D3] Loratadine 10 mg PO QAM 07/28/16 04/21/17 History Rosuvastatin Calcium [Crestor] 10 mg PO QAM 07/28/16 04/21/17 History Warfarin [Coumadin] 7.5 mg PO DAILY@1800 07/28/16 04/21/17 History Acetaminophen Tab [Tylenol Tab] 500 mg PO BEDTIME PRN 02/22/17 04/21/17 History Ferrous Sulfate Tab [Feosol 325 mg PO BID 02/22/17 04/21/17 History Original Tab] Zaleplon 5 mg PO BEDTIME 02/22/17 04/21/17 History Triamterene/Hydrochlorothiazid 1 each PO DAILY 04/21/17 04/21/17 History [Triamterene-Hctz 37.5-25 mg Tb] Allergies Allergy/AdvReac Type Severity Reaction Status Date / Time latex Allergy Severe BLISTER Verified 04/21/17 13:47 - Constitutional Constitutional: Present: fatigue, malaise, weakness. Absent: chills, fever(s) - EENT Eyes: Absent: blurry vision, loss of vision Ears: Absent: decreased hearing, ear pain Nose, mouth and throat: Absent: hoarseness, sinus pressure, sore throat - Cardiovascular Cardiovascular: Present: dyspnea, dyspnea on exertion, orthopnea, PND. Absent: chest pain at rest, chest pain with activity, palpitations - Respiratory Respiratory: Absent: cough, dyspnea, wheezing - Gastrointestinal Gastrointestinal: Absent: abdominal pain, cramping, diarrhea, hematemesis, hematochezia, nausea, vomiting - Genitourinary Genitourinary: Absent: dysuria, nocturia, urinary frequency - Musculoskeletal Musculoskeletal: Absent: arthralgias, back pain - Neurological Neurological: Absent: abnormal gait, focal weakness, numbness, paresthesias - Psychiatric Psychiatric: Absent: anxiety, confusion - Endocrine Endocrine: Present: fatigue. Absent: polydipsia, polyphagia - Hematologic/Lymphatic Hematologic/Lymphatic: Absent: easy bleeding, easy bruising Medical,Surgical,& Family Hx - Medical History Cardio: History of: Cardiac Dysrhythmia (A FIB HX), Pacemaker (DR JIMENEZ X2 2007 ) No history of: Hypertension Neurology: No history of: Seizures HEENT: History of: Eye Problem (READING GLASSES), Dental Problems (UPPER DENTURE ; PARTIAL LOWER), HEENT Problems (NASAL TUMOR REMOVED 2016. DR LEONG.) Endocrine: History of: Dyslipidemia Rheumatology: History of;: Rheumatological Problems (LOWER BACK) Respiratory: No history of: Respiratory Problems (FLU VAC- NO; PNEU VAC- YES 2015) Genitourinary: History of: Bladder Problem, Prostate Problems (BPH DR JAMISON; PAST HX PROSTATE CA AND RADIATION (1999)) Gastrointestinal: History of: GI Problems (CONSTIPATION.) Musculoskeletal: History of: Amputation Hematology: History of: Anemia Other: History of: Cancer (SKIN CA NASAL DORSUM RIGHT, PROSTATE CA.) - Surgical History Cardiac Surgeries: Sugical HX of: Cardiac Surgery (CABG 2000 BYPASS X5) HEENT Surgeries: Surgical HX of: Eye Surgery ([facility] CATARACT SURGERY), Tonsilectomy & Adenoidectomy Abdominal Surgeries: Surgical HX of: Appendectomy (AT AGE 8.), Colonoscopy, EGD Orthopedic Surgeries: Surgical HX of;: Implanted Devices (PACEMAKER), Total Knee Replacement (LEFT) - Family History Family History: Reports;: Family Diabetes (MOM, both sisters) - Social History Smoking Status: Former smoker Frequency of Alcohol Use: None Type of Drug Use: None Exam - Constitutional Vitals: Period Temp Pulse Resp BP Sys/Webb Pulse Ox Last 24 Hr 96.9 F-99.0 F 21-103 16-23 122-187/49-77 90-100 Exam: General: Objective patient is a well-developed white male in no acute distress. Patient has no dyspnea at rest. Is able give a good history. HEENT: Pupils equal and reactive to light. Is noted to have pallor of the conjunctiva. Neck: No meningismus, adenopathy, thyromegaly. There are no auscultated carotid bruits. Cardiovascular: Irregular rhythm. No murmurs or gallops Chest: Patient's noted to have bibasilar rales posteriorly. Abdomen: Soft nontender to palpation No masses, rebound, guarding or tenderness. There is no palpable hepatosplenomegaly. Neuro: Cranial nerves intact and DTRs and strength symmetric in all extremities. Dermatologic: No evidence of abnormal lesions or masses. Musculoskeletal: There is no joint swelling or tenderness or deformity. Extremities: Patient has 2+ pitting pretibial edema Results - Labs CBC & BMP: 04/21/17 19:39 04/22/17 04:30 Lab Results: I have reviewed the past 24 hour labs - Diagnostic Findings Procedure: Chest x-ray: report reviewed by me (Cardiomegaly)
[2017-04-22 08:20] LABS: Folate 6.9 NG/ML (5.4-24.0)
--- NOTE | 2017-04-22 09:23 | Ultrasound Report ---
Exam: Bilateral lower extremity venous Doppler ultrasound Comparison: 11/21/2013 Clinical history: Lower extremity edema, dyspnea Technique: Duplex scan of the lower extremity veins using B-mode/grayscale scaled imaging and Doppler spectral analysis and color flow. Findings: Major venous structures of the lower extremities demonstrate a normal course and caliber. Normal color-flow study and spectral analysis. There is normal compression and augmentation of bilateral common femoral, superficial femoral and popliteal veins. The proximal bilateral greater saphenous veins appear to be patent. Impression: No evidence to suggest deep venous thrombosis within either lower extremity. Ultrasound images were captured and stored. PROCEDURE INTERPRETED AT [facility] DEPARTMENT OF RADIOLOGY Final Report Signed by: Dr. Nilda Perry
[2017-04-22] MEDS: LORATADINE 10 MG TABLET PO SCH (09:29)
[2017-04-22] MEDS: CHOLECALCIFEROL 1,000 UNIT TABLET PO SCH (09:29)
[2017-04-22] MEDS: PANTOPRAZOLE 40 MG VIAL IV SCH (09:29)
[2017-04-22] MEDS: ATENOLOL 50 MG TABLET PO SCH (09:29)
[2017-04-22] MEDS: DOCUSATE SODIUM 100 MG CAPSULE PO SCH ×2 (09:29→20:46)
[2017-04-22] MEDS: ROSUVASTATIN 10 MG TABLET PO SCH (09:29)
[2017-04-22] MEDS: FERROUS SULFATE 325 MG TABLET PO SCH ×2 (09:29→20:46)
[2017-04-22] MEDS: FUROSEMIDE 20 MG/2 ML VIAL IV SCH ×2 (09:30→18:06)
--- NOTE | 2017-04-22 09:39 | XRay Report ---
XR chest 2V Date: 04/22/2017 4:00 AM History: Shortness of breath Comparison: 04/21/2017 Technique: PA and lateral chest Findings: Stable cardiomegaly with prior median sternotomy with left subclavian atrioventricular pacemaker. The lungs remain overexpanded with chronic scarring. Progressive parenchymal findings in the lower lung zones with small pleural effusions. Stable mediastinum and osseous structures. Postoperative findings in the left neck. Impression: COPD/bullous emphysema with chronic scarring patient with prior median sternotomy. Left subclavian atrioventricular permanent pacemaker. Progressive CHF/bilateral pneumonia with small pleural effusions. Ill-defined densities persist and follow-up chest x-ray is recommended to document clearing. PROCEDURE INTERPRETED AT [facility] DEPARTMENT OF RADIOLOGY Final Report Signed by: Dr. Nilda Perry
--- NOTE | 2017-04-22 10:19 | Pulmonology Consult Note ---
Assessment and Plan (1) Acute bronchitis Status: Acute Assessment and plan: He has had a cough and congestion I do hear some rhonchi. Agree with empiric antibiotics and bronchodilators. I think his dyspnea is multifactorial and this is one factor. Current Visit: Yes (2) Acute dyspnea Status: Acute Assessment and plan: He has chronic anemia which may cause dyspnea on exertion of course. I think he has a superimposed bronchitis. Probably has some chronic diastolic congestive heart failure as well. Current Visit: Yes (3) CHF (congestive heart failure) Status: Acute Assessment and plan: Cardiology is seeing. Current Visit: Yes (4) A-fib Status: Chronic Assessment and plan: Patient is on Coumadin for atrial fibrillation. The A. fib of course may cause decreased left ventricular function. The Coumadin may aggravate his chronic anemia. Current Visit: Yes (5) Normocytic anemia Status: Acute Assessment and plan: Needs full workup to see why he has this. This is playing a major factor in his shortness of breath. Current Visit: Yes (6) Paroxysmal atrial fibrillation Status: Chronic Assessment and plan: On anticoagulants and medications to control his right Current Visit: Yes History of Present Illness Chief complaint: Shortness of breath History of present illness: Mr. Galicia is a 81 year old male who came in complaining of shortness of breath. He has had some congestion and cough in the last 5 or 6 days and his dyspnea has been worse over that time. He has chronic edema. He has anemia and has been on iron for quite some time through the [facility]. His hematocrit is only 25 however. He has had previous coronary bypass surgery about 17 years ago and stopped smoking at that time. He has not had any hemoptysis. He is coughed up a little bit of clear sputum. He does not think he has had fever or chills. He does have atrial fibrillation and is on chronic anticoagulation. He does not know why he is anemic. Home Medications Medication Instructions Recorded Confirmed Type Atenolol 50 mg PO QAM 07/28/16 04/21/17 History Cholecalciferol (Vitamin D3) 2,000 unit PO QAM 07/28/16 04/21/17 History [Vitamin D3] Loratadine 10 mg PO QAM 07/28/16 04/21/17 History Rosuvastatin Calcium [Crestor] 10 mg PO QAM 07/28/16 04/21/17 History Warfarin [Coumadin] 7.5 mg PO DAILY@1800 07/28/16 04/21/17 History Acetaminophen Tab [Tylenol Tab] 500 mg PO BEDTIME PRN 02/22/17 04/21/17 History Ferrous Sulfate Tab [Feosol 325 mg PO BID 02/22/17 04/21/17 History Original Tab] Zaleplon 5 mg PO BEDTIME 02/22/17 04/21/17 History Triamterene/Hydrochlorothiazid 1 each PO DAILY 04/21/17 04/21/17 History [Triamterene-Hctz 37.5-25 mg Tb] Allergies Allergy/AdvReac Type Severity Reaction Status Date / Time latex Allergy Severe BLISTER Verified 04/21/17 13:47 12 point system: reviewed and no additional remarkable complaints except as stated - Constitutional Constitutional: Present: fatigue, malaise, weakness - Cardiovascular Cardiovascular: Present: dyspnea, dyspnea on exertion, orthopnea - Respiratory Respiratory: Present: cough, dyspnea, dyspnea on exertion - Endocrine Endocrine: Present: fatigue Exam (Pulmonay) H&P - Constitutional Vitals: Period Temp Pulse Resp BP Sys/Webb Pulse Ox Last 24 Hr 96.9 F-99.0 F 21-103 16-23 122-187/49-77 90-100 Exam: Patient is alert and oriented. Vital signs normal except for irregular pulse. O2 sat in the mid 90s. HEENT: Pupils react to light. Throat is clear. Neck supple no bruits. Chest reveals a few scattered rhonchi. Heart irregular without murmur. Abdomen soft nontender no masses. Extremities no clubbing cyanosis, but does have 1+ peripheral edema. He has a well-healed sternal scar. Well-healed scars on both legs from venous donor sites and from his knees from previous surgery. Calves are nontender. Medical,Surgical,& Family Hx - Medical History Cardio: History of: Cardiac Dysrhythmia (A FIB HX), Pacemaker (DR JIMENEZ X2 2007 ) No history of: Hypertension Neurology: No history of: Seizures HEENT: History of: Eye Problem (READING GLASSES), Dental Problems (UPPER DENTURE ; PARTIAL LOWER), HEENT Problems (NASAL TUMOR REMOVED 2017. DR LEONG.) Endocrine: History of: Dyslipidemia Rheumatology: History of;: Rheumatological Problems (LOWER BACK) Respiratory: No history of: Respiratory Problems (FLU VAC- NO; PNEU VAC- YES 2015) Genitourinary: History of: Bladder Problem, Prostate Problems (BPH DR JAMISON; PAST HX PROSTATE CA AND RADIATION (1999)) Gastrointestinal: History of: GI Problems (CONSTIPATION.) Musculoskeletal: History of: Amputation Hematology: History of: Anemia Other: History of: Cancer (SKIN CA NASAL DORSUM RIGHT, PROSTATE CA.) - Surgical History Cardiac Surgeries: Sugical HX of: Cardiac Surgery (CABG 2000 BYPASS X5) HEENT Surgeries: Surgical HX of: Eye Surgery ([facility] CATARACT SURGERY), Tonsilectomy & Adenoidectomy Abdominal Surgeries: Surgical HX of: Appendectomy (AT AGE 8.), Colonoscopy, EGD Orthopedic Surgeries: Surgical HX of;: Implanted Devices (PACEMAKER), Total Knee Replacement (LEFT) - Family History Family History: Reports;: Family Diabetes (MOM, both sisters) - Social History Smoking Status: Former smoker Frequency of Alcohol Use: None Type of Drug Use: None Results - Labs CBC & BMP: 04/21/17 19:39 04/22/17 04:30 Lab Results: I have reviewed the past 24 hour labs - Diagnostic Findings Procedure: Chest x-ray: image reviewed by me (Mild cardiomegaly, small pleural effusions)
[2017-04-22] MEDS ORDERED: cefTRIAXone 1,000 MG in SODIUM CHLORIDE 0.9% 100 ML IV SCH (10:30)
--- NOTE | 2017-04-22 10:37 | Oncology Consult Note ---
History of Present Illness History of present illness: Mr. Galicia is a 81 year old male that I was asked to see because of anemia. The patient was admitted with a Hemoglobin of 8.0. His white cell count was normal at 6500 and his platelet count was normal at 202,000. He is on Coumadin and his INR on admission was 1.9. After talking with the patient and his daughter, and know that he fell about 9 weeks ago, sustaining fairly extension with facial injuries and from her description he lost a lot of blood. Shortly before this admission, the same thing occurred again and the patient lost blood again. The daughter expressed concern about the patient's balance after I mentioned it. She tells me that he has taken a couple of Tranxene that belonged to his . She has been sick and he has been worried and she thinks he took them in order to sleep and fell the second time about 5 days ago because he stood up and lost his balance. I would have expected his serum iron and iron binding capacity to reflect this. He should have had a low serum iron with a normal iron capacity rather than both of them being normal. I am ordering a serum protein electrophoresis and a haptoglobin level but I expect them to be normal. He reports dark stools but he is on oral iron. He does not give any other history of GI or blood loss. Evaluation of his anemia has already begun and he has a documented serum iron of 138 with a total iron-binding capacity of 364, both of which are normal. In addition, his B12 level is 418 with a folic acid level of 6.9. His comprehensive metabolic profile is not particularly abnormal. Acute blood loss on 2 occasions, probably significant chronic anticoagulation but I would consider a change in anticoagulants Acute bronchitis Acute dyspnea CHF (congestive heart failure) A-fib with artificial pacemaker in long-term anticoagulation due to syncope that occurred at about the time of the development of A. fib Normocytic anemia Paroxysmal atrial fibrillation Past medical history: Allergies: Latex Long-term anticoagulation with Coumadin. In this patient's particular instance , I consider this to be highly risky. Artificial pacemaker Syncope, probably multifactorial but it appears to be more likely that he has had hypotension that caused within any definite history of strokes. Social history: He smoked until about 20 years ago. His daughter says that he was a heavy drinker until about 10 years ago or more when he quit abruptly on his own. Family history: No strong family history of thrombophilia or of hemorrhagic disease. His review of systems is negative for upper GI bleeding, bright red rectal bleeding, bleeding from the system. He has occasional nosebleeds but his last 2 episodes of facial injury and falling appear to have resulted in substantial blood loss. Physical examination: General: The patient appears to be approximately his stated age. He does not appear chronically ill. Eyes: Normal lids and conjunctivae except that he still has some residual left periorbital injury from the fall about 9 weeks ago. ENT: His oral mucosa and pharynx are normal. His hearing appears normal. His trachea is midline and he has no neck masses. His thyroid appears normal. Lungs: Breath sounds are relatively normal throughout without rubs, rales or rhonchi in his chest moves symmetrically with respiration. Cardiovascular: His heart rhythm is regular without murmur, gallop or rub. There is no jugular venous distention, clubbing, cyanosis or edema. I hear no carotid bruits. Abdomen: No abdominal masses, organomegaly, distention or tenderness and no ascites. Musculoskeletal: He has some degenerative arthritis in his hands but no more than I would ordinarily expect. I see no focal muscle atrophy or bone or joint deformity. Neurologic: Cranial nerves II through XII are intact. He has no obvious focal neurologic deficits. His left eyelid is drooping some but I think it from the recent eye injury that he suffered in the fall. Psychiatric: Superficially, the patient appears to be oriented to time, place, person and situation. His daughter does insist that he has a component of denial concerning his health however and I believe this. I would not be surprised if the patient's anemia was not due to these 2 recent episodes of injury with significant blood loss. It would be useful to evaluate him further for GI blood loss, especially to rule out colon cancer. I am actually going to check a PSA and a CEA level. I am also ordering a serum protein electrophoresis and haptoglobin level. I would consider anticoagulation with some product other than Coumadin. He has already had 2 significant falls and medical data confirms that long-term Coumadin therapy will eventually produce a life-threatening bleed of some type. I consider him at high risk for a head injury that could lead to his demise. I will check back Tuesday. Thank you for consulting me. Home Medications Medication Instructions Recorded Confirmed Type Atenolol 50 mg PO QAM 07/28/16 04/21/17 History Cholecalciferol (Vitamin D3) 2,000 unit PO QAM 07/28/16 04/21/17 History [Vitamin D3] Loratadine 10 mg PO QAM 07/28/16 04/21/17 History Rosuvastatin Calcium [Crestor] 10 mg PO QAM 07/28/16 04/21/17 History Warfarin [Coumadin] 7.5 mg PO DAILY@1800 07/28/16 04/21/17 History Acetaminophen Tab [Tylenol Tab] 500 mg PO BEDTIME PRN 02/22/17 04/21/17 History Ferrous Sulfate Tab [Feosol 325 mg PO BID 02/22/17 04/21/17 History Original Tab] Zaleplon 5 mg PO BEDTIME 02/22/17 04/21/17 History Triamterene/Hydrochlorothiazid 1 each PO DAILY 04/21/17 04/21/17 History [Triamterene-Hctz 37.5-25 mg Tb] Allergies Allergy/AdvReac Type Severity Reaction Status Date / Time latex Allergy Severe BLISTER Verified 04/21/17 13:47 Medical,Surgical,& Family Hx - Medical History Cardio: History of: Cardiac Dysrhythmia (A FIB HX), Pacemaker (DR JIMENEZ X2 2007 ) No history of: Hypertension Neurology: No history of: Seizures HEENT: History of: Eye Problem (READING GLASSES), Dental Problems (UPPER DENTURE ; PARTIAL LOWER), HEENT Problems (NASAL TUMOR REMOVED 2016. DR LEONG.) Endocrine: History of: Dyslipidemia Rheumatology: History of;: Rheumatological Problems (LOWER BACK) Respiratory: No history of: Respiratory Problems (FLU VAC- NO; PNEU VAC- YES 2015) Genitourinary: History of: Bladder Problem, Prostate Problems (BPH DR JAMISON; PAST HX PROSTATE CA AND RADIATION (1999)) Gastrointestinal: History of: GI Problems (CONSTIPATION.) Musculoskeletal: History of: Amputation Hematology: History of: Anemia Other: History of: Cancer (SKIN CA NASAL DORSUM RIGHT, PROSTATE CA.) - Surgical History Cardiac Surgeries: Sugical HX of: Cardiac Surgery (CABG 2000 BYPASS X5) HEENT Surgeries: Surgical HX of: Eye Surgery (VAL[place]IA CATARACT SURGERY), Tonsilectomy & Adenoidectomy Abdominal Surgeries: Surgical HX of: Appendectomy (AT AGE 8.), Colonoscopy, EGD Orthopedic Surgeries: Surgical HX of;: Implanted Devices (PACEMAKER), Total Knee Replacement (LEFT) - Family History Family History: Reports;: Family Diabetes (MOM, both sisters) - Social History Smoking Status: Former smoker Frequency of Alcohol Use: None Type of Drug Use: None Exam - Constitutional Vitals: Period Temp Pulse Resp BP Sys/Webb Pulse Ox Last 24 Hr 96.9 F-99.0 F 21-103 16-23 122-187/49-77 90-100 Results - Labs CBC & BMP: 04/21/17 19:39 04/22/17 04:30
[2017-04-22] MEDS ORDERED: SODIUM CHLORIDE 0.9% 250 ML IV PRN (11:42)
[2017-04-22 11:54] LABS: Total Protein 7.4 G/DL (6.4-8.3)
[2017-04-22 12:24] LABS: Carcinoembryonic Antigen < 0.5 NG/ML (0.0-5.0); Prostate Specific Antigen Diag 2.2 NG/ML (0-4)
[2017-04-22] MEDS: ALBUTEROL/IPRATROPIUM 3 ML NEB RESP TX SCH ×2 (13:13→19:59)
[2017-04-22 14:08] LABS: Free T4 (Free Thyroxine) 0.84 NG/DL (0.76-1.46); Thyroid Stimulating Hormone 1.35 uIU/ml (0.358-3.74)
[2017-04-22] MEDS: WARFARIN 5 MG TABLET PO SCH (17:47)
[2017-04-22] MEDS: POLYETHYLENE GLYCOL POWDER 17 GM PACK PO SCH (18:21)
[2017-04-22 18:57] LABS: Apearance,Urine CLEAR (Clear); Bilirubin,Urine Negative (Negative); Blood, Urine Negative (Negative); Glucose,Urine (UA) Negative (Negative); Ketones,Urine Negative (Negative); Mucus,Urine Occasional /LPF (Occasional); Nitrite,Urine Negative (Negative); Protein,Urine Negative; RBC,Urine 1 /HPF (0-4); Urine Color Yellow (Yellow); Urine Specific Gravity 1.012 (1.001-1.035); Urine Urobilinogen < 2.0 EU/DL (0.2-1.0); WBC,Urine 4 /HPF (0-6)
--- NOTE | 2017-04-22 19:18 | Cardiology Consult Note ---
Mirza Gilbert Vanessa, RN, am scribing for, and in the presence of, Kalin Palacios MD 19:18. Assessment and Plan - Time spent with patient Time spent with patient: Greater than 30 minutes (Due to assessment, planning, documentation, and medication review) Time spent discussing smoking cessation with patient: 3 to 10 minutes (1) Acute dyspnea Status: Acute Assessment and plan: 81-year-old WM with past medical history CAD, CABG 17 years ago, paroxysmal atrial fibrillation, hypertension, hyperlipidemia, and chronic dyspnea on exertion and fatigue. He has now admitted with generalized weakness, shortness of breath, dyspnea on exertion, orthopnea. April ASSESSMENT/PLAN: 1. ACUTE DYSPNEA- Agree with IV diuresis as he may have some diastolic dysfunction. He is also being treated for an element of acute bronchitis. Echocardiogram is pending. 2. ATRIAL FIBRILLATION- paroxysmal. Ventricular response controlled. Continue beta-jessica. 3. HYPERTENSION-suboptimally controlled times. Monitor and adjust antihypertensives as indicated. 4. DYSLIPIDEMIA- continue statin. 5. ANEMIA-history of iron deficiency anemia. Hematocrit 25% on admission. He does take an iron supplement. Oncology is evaluating. Anemia panel noted 6. CAD WITH HISTORY OF CABG- appears to be stable at this time. He is not having any overt anginal complaint. 7. CHRONIC ANTICOAGULATION- Anticoagulated with Coumadin for stroke prevention. INR slightly subtherapeutic, 1.9. 8. PACEMAKER IMPLANT-pacemaker interrogated in January 2017, and was noted to not have any changes in function since previous interrogation in September 2016. Appears to be functioning appropriately at this time. Differential diagnosis would include LV diastolic dysfunction, LV systolic dysfunction, valvular heart disease, coronary disease, lung disease, overweight , deconditioning/ inactivity or it Could be some combination of above. Plan/recommendation: Check echo No salt added diet Consult Dr. Zaria Yeboah Elevate legs greater than heart, 10 minutes, 2 times per day Treat for diastolic/systolic heart failure Optimize pulmonary treatment/function Within a few days after getting home, you can start walking slowly, at your pace , to the point of shortness of breath. then rest. When you catch your breath, then you could walk again to the point of shortness of breath, etc. Try to build up to walking, at your pace, about 20-30 minutes, 4-5 days a week. This will help lessen your dyspnea on exertion. Thank you for allowing me to participate in this patient's care Current Visit: Yes (2) History of pacemaker Status: Acute Assessment and plan: SEE PLAN OF CARE LISTED ABOVE. Current Visit: Yes (3) Normocytic anemia Status: Acute Assessment and plan: SEE PLAN OF CARE LISTED ABOVE. Current Visit: Yes (4) Chronic anticoagulation Status: Chronic Assessment and plan: SEE PLAN OF CARE LISTED ABOVE. Current Visit: Yes (5) Paroxysmal atrial fibrillation Status: Chronic Assessment and plan: SEE PLAN OF CARE LISTED ABOVE. Current Visit: Yes (6) History of atrial flutter Status: Chronic Assessment and plan: SEE PLAN OF CARE LISTED ABOVE. Current Visit: Yes (7) History of prostate cancer Status: Chronic Assessment and plan: SEE PLAN OF CARE LISTED ABOVE. Current Visit: Yes (8) CAD (coronary artery disease) Status: Chronic Assessment and plan: SEE PLAN OF CARE LISTED ABOVE. Current Visit: Yes (9) History of coronary artery bypass surgery Status: Chronic Assessment and plan: SEE PLAN OF CARE LISTED ABOVE. Current Visit: Yes (10) Hypertension Status: Chronic Assessment and plan: SEE PLAN OF CARE LISTED ABOVE. Current Visit: Yes (11) Dyslipidemia Status: Chronic Assessment and plan: SEE PLAN OF CARE LISTED ABOVE. Current Visit: Yes (12) History of carotid artery stenosis Status: Chronic Assessment and plan: SEE PLAN OF CARE LISTED ABOVE. 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 JIMENEZ Mr. Galicai is a 81 year old white male risk factors significant for: Hypertension, dyslipidemia, obesity, former tobacco use, personal previous history of CAD, and family history of premature CAD. He is status post coronary artery bypass grafting 4 in June 2000 with CUEVAS to LAD, SVG to ramus intermedius, SVG to obtuse marginal branch, and SVG to PDA. Past medical history includes paroxysmal atrial fibrillation, atrial flutter, and he is chronically anticoagulated with Coumadin. Dual-chamber pacemaker and per Dr. Alvarado in January 2011. Other history includes carotid artery stenosis, iron deficiency anemia, prostate cancer, and osteoarthritis. He is status post left CEA in February 2017. Patient admitted now to [facility] tele[facility] after presenting to the ED with complaints of increasing shortness of breath, congestion, and cough over a period of 3-4 days prior to arrival. No overt chest pain, and no associated diaphoresis, nausea, vomiting, or other anginal symptoms. EKG with atrial fibrillation, intermittent ventricular pacing, no acute ischemic change. Chest x-ray with mild pleural effusion but no significant pulmonary edema. Mildly elevated BNP, 190. Cardiology asked to see for further evaluation of shortness of breath. Echocardiogram being obtained at bedside this morning, and we will review. Mr. Galicia is not having any acute respiratory distress. No chest pain. His daughter is present at bedside with him. Daughter is concerned for patient as she says the last time he experienced an episode like this, workup revealed that pacemaker battery was no longer functioning, and he was taken for generator change that same day. Patient report he feels "just weak all over," can't take in a good breath. Reports some recent significant lower extremity edema, but this is apparently improved now. Does have 1-2+ peripheral edema. BP 138/69. He has been started on IV Lasix since admission, and reports good urine output. BNP mildly elevated this AM to 449. Anemia noted on admission with hematocrit 25.7%. He has been seen in consultation by oncology for evaluation of anemia, and pulmonology for acute dyspnea. CC: Lexx Wihte MD - Home Medications and Allergies Home Medications: Home Medications Medication Instructions Recorded Confirmed Type Atenolol 50 mg PO QAM 07/28/16 04/21/17 History Cholecalciferol (Vitamin D3) 2,000 unit PO QAM 07/28/16 04/21/17 History [Vitamin D3] Loratadine 10 mg PO QAM 07/28/16 04/21/17 History Rosuvastatin Calcium [Crestor] 10 mg PO QAM 07/28/16 04/21/17 History Warfarin [Coumadin] 7.5 mg PO DAILY@1800 07/28/16 04/21/17 History Acetaminophen Tab [Tylenol Tab] 500 mg PO BEDTIME PRN 02/22/17 04/21/17 History Ferrous Sulfate Tab [Feosol 325 mg PO BID 02/22/17 04/21/17 History Original Tab] Zaleplon 5 mg PO BEDTIME 02/22/17 04/21/17 History Triamterene/Hydrochlorothiazid 1 each PO DAILY 04/21/17 04/21/17 History [Triamterene-Hctz 37.5-25 mg Tb] Allergies/Adverse Reactions: Allergies Allergy/AdvReac Type Severity Reaction Status Date / Time latex Allergy Severe BLISTER Verified 04/21/17 13:47 - Constitutional Constitutional: Present: fatigue, weakness. Absent: anorexia, chills, fever(s) , frequent falls, night sweats, weight gain, weight loss - EENT Eyes: Absent: blurry vision Ears: Absent: decreased hearing Nose, mouth and throat: Absent: dysphagia, lip swelling, neck pain, tongue swelling - Cardiovascular Cardiovascular: Present: dyspnea, dyspnea on exertion, edema, orthopnea. Absent : chest pain at rest, chest pain with activity, radiating jaw, neck or arm pain , lightheadedness, palpitations, PND - Respiratory Respiratory: Present: cough, dyspnea, dyspnea on exertion. Absent: hemoptysis, wheezing, change in phlegm color - Gastrointestinal Gastrointestinal: Absent: abdominal pain, bloating, constipation, diarrhea, dysphagia, early satiety, hematemesis, hematochezia, melena, nausea, vomiting, jaundice - Genitourinary Genitourinary: Absent: difficulty urinating, flank pain, nocturia - Musculoskeletal Musculoskeletal: Present: arthralgias, limited range of motion, myalgias - Neurological Neurological: Present: abnormal gait. Absent: abnormal speech, confusion, dizziness, syncope, tremor(s) - Psychiatric Psychiatric: Absent: anxiety, confusion, depression - Endocrine Endocrine: Absent: cold intolerance, heat intolerance - Hematologic/Lymphatic Hematologic/Lymphatic: Present: easy bruising. Absent: easy bleeding Medical,Surgical,& Family Hx - Medical History Cardio: History of: Cardiac Dysrhythmia (Paroxysmal atrial fibrillation; atrial flutter), CAD, Pacemaker (DR JIMENEZ X2 2007) No history of: Hypertension, Valvular Heart Disease Neurology: No history of: Dementia, Seizures HEENT: History of: Eye Problem (READING GLASSES), Dental Problems (UPPER DENTURE ; PARTIAL LOWER), HEENT Problems (NASAL TUMOR REMOVED 2017. DR LEONG.) Endocrine: History of: Dyslipidemia No history of: Diabetes Mellitus (IDDM), Diabetes Mellitus (NIDDM), Thyroid Disorder Rheumatology: History of;: Rheumatological Problems (LOWER BACK) Respiratory: No history of: Bronchitis, COPD, Respiratory Problems (FLU VAC- NO; PNEU VAC - YES 2015) Genitourinary: History of: Bladder Problem, Prostate Problems (BPH DR JAMISON; PAST HX PROSTATE CA AND RADIATION (1999)) Gastrointestinal: History of: GERD, GI Problems (CONSTIPATION.) No history of: Gastrointestinal Bleed Musculoskeletal: History of: Amputation Hematology: History of: Anemia No history of: Bleeding Problems, Clotting Problems Other: History of: Cancer (SKIN CA NASAL DORSUM RIGHT, PROSTATE CA.) - Surgical History Cardiac Surgeries: Sugical HX of: Cardiac Surgery (CABG 2000 BYPASS X5) HEENT Surgeries: Surgical HX of: Eye Surgery ([facility]IA CATARACT SURGERY), Tonsilectomy & Adenoidectomy Abdominal Surgeries: Surgical HX of: Appendectomy (AT AGE 8.), Colonoscopy, EGD Orthopedic Surgeries: Surgical HX of;: Implanted Devices (PACEMAKER), Total Knee Replacement (LEFT) - Family History Family History: Reports;: Family Diabetes (MOM, both sisters) - Social History Smoking Status: Former smoker Frequency of Alcohol Use: None Type of Drug Use: None Functional capacity: uses cane/walker Physical Examination Vital Signs Temp Pulse Resp BP Pulse Ox 99.0 F 61 18 164/49 98 04/21/17 13:43 04/21/17 13:43 04/21/17 13:43 04/21/17 13:43 04/21/17 13:43 General: Present: Other HEENT: Present: PERRL Neck: Present: Midline Trachea, No JVD/HJR, Bruit (Bilateral) Cardiac: Present: Irregularly Regular, No Murmur. Absent: Tachycardia, Bradycardia Lungs: Present: Scattered Rhonchi (Throughout), Oxygen, No Wheezes Neuro: Present: Weakness, Grossly Intact. Absent: Numbness, Resting Tremor, Essential Tremor Abdomen: Present: Soft, Active Bowel Sounds, Other (Obese). Absent: Ascites, Tender, Firm, Distended Skin: Present: Clear. Absent: Rash, Suspicious Lesions Extremities: Present: No Clubbing, No Cyanosis, Normal Upper Extr. Pulses (3+ bilaterally), Normal Lower Extr. Pulses (1-2+ bilateral), Edema (1+ bilateral lower extremities), Capillary Refill (Normal) Result/EKG - Labs CBC & BMP: 04/21/17 19:39 04/22/17 04:30 Lab Results: I have reviewed the past 24 hour labs Labs: Laboratory Results - last 24 hr 04/21/17 04/21/17 04/21/17 14:15 14:15 14:15 WBC 6.9 RBC 2.75 L Hgb 7.9 L Hct 25.8 L MCV 93.8 MCH 29 MCHC 30.6 L RDW 15.6 Plt Count 197 MPV 10.4 Neut % (Auto) 68.7 Lymph % (Auto) 16.2 L [place] % (Auto) 8.5 Eos % (Auto) 5.9 Baso % (Auto) 0.4 Neut # (Auto) 4.7 Lymph # (Auto) 1.1 L [place] # (Auto) 0.6 Eos # (Auto) 0.4 Baso # (Auto) 0.0 Immature Gran % 0.3 Nucleated RBC % 0.0 Immature Gran # 0.02 Nucleated RBCs # 0.00 Immature Plt Fraction 0.0 INR PT Patient/Control Mix Circ Anticoag PTT Sodium 137 Potassium 3.9 Chloride 102 Carbon Dioxide 29 Anion Gap 9.9 BUN 18 Creatinine 1.30 GFR Calculation 66 BUN/Creatinine Ratio 13.00 Glucose 121 H Calculated Osmolality 275.8 Calcium 8.8 Magnesium Iron TIBC % Saturation Total Bilirubin 0.50 AST 39 H ALT 25 Alkaline Phosphatase 72 Lactate Dehydrogenase Total Creatine Kinase 319 H CK-MB (CK-2) 1.2 Troponin I 0.026 B-Natriuretic Peptide Total Protein 8.0 Albumin 3.0 L Globulin 5.0 H Albumin/Globulin Ratio 0.6 L Vitamin B12 Folate 04/21/17 04/21/17 04/21/17 14:15 15:43 15:43 WBC 6.5 RBC 2.73 L Hgb 8.0 L Hct 25.7 L MCV 94.1 MCH 29 MCHC 31.1 L RDW 15.6 Plt Count 202 MPV 10.2 Neut % (Auto) 70.5 Lymph % (Auto) 16.8 L [place] % (Auto) 7.5 Eos % (Auto) 4.6 Baso % (Auto) 0.3 Neut # (Auto) 4.6 Lymph # (Auto) 1.1 L [place] # (Auto) 0.5 Eos # (Auto) 0.3 Baso # (Auto) 0.0 Immature Gran % 0.3 Nucleated RBC % 0.0 Immature Gran # 0.02 Nucleated RBCs # 0.00 Immature Plt Fraction 0.0 INR 2.0 1.9 PT Patient/Control Mix 21.8 D 20.5 Circ Anticoag PTT 34.1 Sodium Potassium Chloride Carbon Dioxide Anion Gap BUN Creatinine GFR Calculation BUN/Creatinine Ratio Glucose Calculated Osmolality Calcium Magnesium Iron TIBC % Saturation Total Bilirubin AST ALT Alkaline Phosphatase Lactate Dehydrogenase Total Creatine Kinase CK-MB (CK-2) Troponin I B-Natriuretic Peptide Total Protein Albumin Globulin Albumin/Globulin Ratio Vitamin B12 Folate 04/21/17 04/21/17 04/21/17 15:43 15:43 19:39 WBC 7.1 RBC 2.73 L Hgb 7.9 L Hct 25.2 L MCV 92.3 MCH 29 MCHC 31.3 L RDW 15.6 Plt Count 215 MPV 10.9 Neut % (Auto) 89.1 H Lymph % (Auto) 9.0 L [place] % (Auto) 1.1 L Eos % (Auto) 0.1 Baso % (Auto) 0.1 Neut # (Auto) 6.3 Lymph # (Auto) 0.6 L [place] # (Auto) 0.1 L Eos # (Auto) 0.0 Baso # (Auto) 0.0 Immature Gran % 0.6 Nucleated RBC % 0.0 Immature Gran # 0.04 Nucleated RBCs # 0.00 Immature Plt Fraction 0.0 INR PT Patient/Control Mix Circ Anticoag PTT Sodium Potassium Chloride Carbon Dioxide Anion Gap BUN Creatinine GFR Calculation BUN/Creatinine Ratio Glucose Calculated Osmolality Calcium Magnesium 2.5 H Iron TIBC % Saturation Total Bilirubin AST ALT Alkaline Phosphatase Lactate Dehydrogenase Total Creatine Kinase CK-MB (CK-2) Troponin I 0.026 B-Natriuretic Peptide 190 H Total Protein Albumin Globulin Albumin/Globulin Ratio Vitamin B12 Folate 04/22/17 04/22/17 04/22/17 04:27 04:27 04:30 WBC RBC Hgb Hct MCV MCH MCHC RDW Plt Count MPV Neut % (Auto) Lymph % (Auto) [place] % (Auto) Eos % (Auto) Baso % (Auto) Neut # (Auto) Lymph # (Auto) [place] # (Auto) Eos # (Auto) Baso # (Auto) Immature Gran % Nucleated RBC % Immature Gran # Nucleated RBCs # Immature Plt Fraction INR PT Patient/Control Mix Circ Anticoag PTT Sodium 139 Potassium 3.7 Chloride 101 Carbon Dioxide 28 Anion Gap 13.7 BUN 21 H Creatinine 1.10 GFR Calculation 81 BUN/Creatinine Ratio 19.00 Glucose 129 H Calculated Osmolality 281.5 Calcium 8.1 L Magnesium 2.3 Iron 138 TIBC 364 % Saturation 37.9 Total Bilirubin 0.40 AST 31 ALT 22 Alkaline Phosphatase 63 Lactate Dehydrogenase 211 Total Creatine Kinase CK-MB (CK-2) Troponin I B-Natriuretic Peptide Total Protein 6.9 Albumin 2.8 L Globulin 4.1 H Albumin/Globulin Ratio 0.6 L Vitamin B12 418 Folate 6.9 04/22/17 04/22/17 04:30 04:30 WBC RBC Hgb Hct MCV MCH MCHC RDW Plt Count MPV Neut % (Auto) Lymph % (Auto) [place] % (Auto) Eos % (Auto) Baso % (Auto) Neut # (Auto) Lymph # (Auto) [place] # (Auto) Eos # (Auto) Baso # (Auto) Immature Gran % Nucleated RBC % Immature Gran # Nucleated RBCs # Immature Plt Fraction INR 1.9 PT Patient/Control Mix 20.7 Circ Anticoag PTT Sodium Potassium Chloride Carbon Dioxide Anion Gap BUN Creatinine GFR Calculation BUN/Creatinine Ratio Glucose Calculated Osmolality Calcium Magnesium Iron TIBC % Saturation Total Bilirubin AST ALT Alkaline Phosphatase Lactate Dehydrogenase Total Creatine Kinase CK-MB (CK-2) Troponin I B-Natriuretic Peptide 446 H Total Protein Albumin Globulin Albumin/Globulin Ratio Vitamin B12 Folate - Diagnostic Findings Procedure: Chest x-ray: image reviewed by me, report reviewed by me - EKG EKG results: interpreted by me, no acute changes EKG shows: atrial fibrillation (Intermittent ventricular pacing) Philip Gilbert Dale, MD, personally performed the services described in this documentation, ascribed by Aye Blue RN in my presence, and it is both accurate and complete 918 .
[2017-04-22] MEDS: SODIUM CHLORIDE 0.9% 1,000 ML IV SCH (20:45)
[2017-04-22] MEDS: cefTRIAXone 1,000 MG in SODIUM CHLORIDE 0.9% 100 ML IV SCH (20:46)
[2017-04-22] MEDS: ZALEPLON 5 MG CAPSULE PO SCH (20:46)
--- NOTE | 2017-04-22 22:16 | ECHO Report ---
Jose Galicia Exam Date: 04/22/2017 09:13 Referring Physician: Technologist: Pushpa Jackson Age: 81 Ht (in): 71 Wt (lb): 230 Gender: M Exam Location: [facility] Echo Indications: A Fib, SOB, CHF BP: 144 / 62 HR: 74 Rhythm: Sinus Technical Quality: Good IMPRESSIONS Mild concentric left ventricular hypertrophy with diastolic dysfunction. Left ventricular ejection fraction is estimated at 55-60%. Mild- moderately increased right ventricular size. The right atrium is mild to moderately enlarged. Trace mitral valve regurgitation. Trace tricuspid valve regurgitation. Mild- moderately increased right ventricular size. Tricuspid regurgitation velocities suggest a PAP of 42.8 mmHg + RAP. MEASUREMENTS (Male / Female) Normal Values 2D ECHO LV Diastolic Diameter PLAX 5.1 cm 4.2 - 5.9 / 3.9 - 5.3 cm LV Systolic Diameter PLAX 2.7 cm LV Fractional Shortening PLAX 47.6 % IVS Diastolic Thickness 1.3 cm 0.6 - 1.0 / 0.6 - 0.9 cm LVPW Diastolic Thickness 1.4 cm 0.6 - 1.0 / 0.6 - 0.9 cm Aortic Root Diameter 2.8 cm LA Systolic Diameter LX 4.5 cm 3.0 - 4.0 / 2.7 - 3.8 cm DOPPLER TR Peak Velocity 327.0 cm/s TR Peak Gradient 42.8 mmHg FINDINGS Left Ventricle Normal left ventricular cavity size. Mild concentric left ventricular hypertrophy with diastolic dysfunction. Left ventricular ejection fraction is estimated at 55-60%. Right Ventricle Mild- moderately increased right ventricular size. Right Atrium The right atrium is mild to moderately enlarged Left Atrium The left atrium is 2 + enlarged. Mitral Valve Morphologically normal mitral valve. Trace mitral valve regurgitation. Aortic Valve Mild aortic valve sclerosis without stenosis or regurgitation. Tricuspid Valve Morphologically normal tricuspid valve. Trace tricuspid valve regurgitation. Tricuspid regurgitation velocities suggest a PAP of 42.8 mmHg + RAP. Pulmonic Valve Pulmonic valve not well visualized. Pericardium No pericardial effusion. Aorta Normal size aortic root and proximal ascending aorta. Kalin Palacios MD (Electronically Signed) Final Date: 22 April 2017 22:14
[2017-04-23] MEDS: ALBUTEROL/IPRATROPIUM 3 ML NEB RESP TX SCH ×2 (01:48→07:52)
[2017-04-23 02:03] LABS: Calcium 7.9 MG/DL (8.5-10.1); Magnesium 2.3 MG/DL (1.8-2.4); Osmolality,Calculated 282.4 MOS/KG (273-304); Potassium 3.3 MMOL/L (3.5-5.1)
[2017-04-23 02:04] LABS: Basophils % 0.5 % (0.0-0.8); Eosinophils # 0.2 10*3/uL (0.0-0.87); Eosinophils % 1.9 % (0.00-10.9); Hematocrit 29.6 VOL% (42.0-52.0); Hematocrit 29.8 VOL% (42.0-52.0); Hemoglobin 9.4 GM/DL (14.0-18.0); Hemoglobin 9.6 GM/DL (14.0-18.0); Immature Granulocytes % 0.4 %; Immature Granulocytes Absolute 0.03 #; Lymphocytes # 1.4 10*3/uL (1.4-4.0); Lymphocytes % 17.3 % (21.2-54.2); Mean Corpuscular HGB Conc 31.5 GM/DL (32-36); Mean Corpuscular Hemoglobin 29 PG (27-34); Monocytes # 0.7 10*3/uL (0.11-0.8); Monocytes % 8.4 % (1.7-12.7); Neutrophils % 71.5 % (38.7-73.9); Platelet Count 169 T/CUMM (130-400); Red Blood Count 3.24 MC/CUMM (3.8-5.5); Red Cell Distribution Width 15.1 % (9.3-17.3); White Blood Count 8.3 T/CUMM (4-12)
--- NOTE | 2017-04-23 07:24 | Discharge Summary ---
Hospital Course - Hospital Course Hospital Course: Patient is a 81-year-old gentleman seen in the emergency room with increasing weakness and dyspnea on exertion. Patient was found to have a normocytic anemia which was felt to be due to several factors. Did have some recent falls and had lost quite a bit of blood from cuts that he sustained in these falls. Patient was seen in consultation by Dr. Dutta who recommended continued iron supplementation and he also received 2 units of blood. His hematocrit was 29.6 this morning. He was also seen by cardiology and had echocardiogram performed which revealed a preserved ejection fraction and slight right ventricular enlargement. Patient felt much better after transfusion and is ready to go home. I told him we need to have repeat CBC in 2 weeks. We had a long discussion about his anticoagulation. Patient states he preferred to take the risk of bleeding from Coumadin then to take the risk of having a stroke. He understands implications and risk of this decision. His daughter was present for this conversation. Diagnosis - Discharge Diagnosis (1) Normocytic anemia Status: Acute (2) CHF (congestive heart failure) Status: Acute (3) A-fib Status: Chronic (4) Chronic anticoagulation Status: Chronic Discharge Plan - Discharge Data Disposition: Disch To Home/Self Care Condition at Discharge: Stable Discharge Diet: advance to your usual diet Activity: resume usual activities as tolerated Hygiene: no restrictions Weight Bearing at Discharge: full weight bearing Contact your physician if you experience:: fever over 101 - Discharge Medications New Omeprazole [Prilosec] 20 mg PO BEDTIME #30 capsule Polyethylene Glycol Powder [Miralax] 17 gm PO DAILY Warfarin [Coumadin] 5 mg PO DAILY@1800 tablet Cefuroxime Tab [Ceftin] 500 mg PO BID #14 tablet Furosemide Tab [Lasix Tab] 20 mg PO DAILY #30 tablet Continue Loratadine 10 mg PO QAM Atenolol 50 mg PO QAM Cholecalciferol (Vitamin D3) [Vitamin D3] 2,000 unit PO QAM Rosuvastatin Calcium [Crestor] 10 mg PO QAM Warfarin [Coumadin] 7.5 mg PO DAILY@1800 Ferrous Sulfate Tab [Feosol Original Tab] 325 mg PO BID Acetaminophen Tab [Tylenol Tab] 500 mg PO BEDTIME PRN PRN Reason: Pain Zaleplon 5 mg PO BEDTIME No Action Triamterene/Hydrochlorothiazid [Triamterene-Hctz 37.5-25 mg Tb] 1 each PO DAILY - Follow Up or Referral - Forms/Instructions Exam - Constitutional Vitals: Period Temp Pulse Resp BP Sys/Webb Pulse Ox Last 24 Hr 97.6 F-98.5 F 62-78 18-20 123-183/60-110 94-100 Exam: Objective a well-developed gentleman is awake alert and able give good history. States he feels better and he looks the part as well. Cardiovascular: Heart rates irregular with no murmurs or gallops. Respiratory: The lungs were clear to auscultation bilaterally. Abdomen: Abdomen soft and nontender to palpation. Discharge Results Procedures and tests throughout hospitalization: Pending Orders 04/21/17 17:46 Blood Culture Stat 04/22/17 07:45 Occult Blood, Stool Routine 04/22/17 11:00 Serum Protein Electrophoresis Routine 04/24/17 04:00 BMP w/ Mg [Basic Metabolic Panel w/Mg] IN AM CBC [Comp Blood Count Auto Diff] IN AM 04/25/17 04:00 BMP w/ Mg [Basic Metabolic Panel w/Mg] IN AM CBC [Comp Blood Count Auto Diff] IN AM Labs on day of discharge: Labs from last 24 hours 04/23/17 04/23/17 04/23/17 01:29 01:29 01:29 WBC 8.3 RBC 3.24 L Hgb 9.6 L 9.4 L Hct 29.6 L 29.8 L MCV 92.0 MCH 29 MCHC 31.5 L RDW 15.1 Plt Count 169 D MPV 11.0 Neut % (Auto) 71.5 Lymph % (Auto) 17.3 L [place] % (Auto) 8.4 Eos % (Auto) 1.9 Baso % (Auto) 0.5 Neut # (Auto) 6.0 Lymph # (Auto) 1.4 [place] # (Auto) 0.7 Eos # (Auto) 0.2 Baso # (Auto) 0.0 Immature Gran % 0.4 Nucleated RBC % 0.0 Immature Gran # 0.03 Nucleated RBCs # 0.00 Immature Plt Fraction 0.0 Haptoglobin Sodium 140 Potassium 3.3 L Chloride 102 Carbon Dioxide 28 Anion Gap 13.3 BUN 23 H Creatinine 1.20 GFR Calculation 72 BUN/Creatinine Ratio 19.00 Glucose 101 Calculated Osmolality 282.4 Calcium 7.9 L Magnesium 2.3 Iron TIBC % Saturation Total Bilirubin AST ALT Alkaline Phosphatase Lactate Dehydrogenase B-Natriuretic Peptide Total Protein Albumin Globulin Albumin/Globulin Ratio Carcinoembryonic Ag PSA Diagnostic Vitamin B12 Folate Free T4 TSH 3rd Generation Urine Color Urine Appearance Urine pH Ur Specific Dixon Urine Protein Urine Glucose (UA) Urine Ketones Urine Blood Urine Nitrate Urine Bilirubin Urine Urobilinogen Urine Leukocytes Urine RBC Urine WBC Urine Mucus Ur Culture Indicated? Blood Type Antibody Screen Crossmatch Blood Bank Comment 04/22/17 04/22/17 04/22/17 Unknown 18:47 11:01 WBC RBC Hgb Hct MCV MCH MCHC RDW Plt Count MPV Neut % (Auto) Lymph % (Auto) [place] % (Auto) Eos % (Auto) Baso % (Auto) Neut # (Auto) Lymph # (Auto) [place] # (Auto) Eos # (Auto) Baso # (Auto) Immature Gran % Nucleated RBC % Immature Gran # Nucleated RBCs # Immature Plt Fraction Haptoglobin Sodium Potassium Chloride Carbon Dioxide Anion Gap BUN Creatinine GFR Calculation BUN/Creatinine Ratio Glucose Calculated Osmolality Calcium Magnesium Iron TIBC % Saturation Total Bilirubin AST ALT Alkaline Phosphatase Lactate Dehydrogenase B-Natriuretic Peptide Total Protein Albumin Globulin Albumin/Globulin Ratio Carcinoembryonic Ag < 0.5 PSA Diagnostic 2.2 Vitamin B12 Folate Free T4 TSH 3rd Generation Urine Color Yellow Urine Appearance Clear Urine pH 6.0 Ur Specific Dixon 1.012 Urine Protein Negative Urine Glucose (UA) Negative Urine Ketones Negative Urine Blood Negative Urine Nitrate Negative Urine Bilirubin Negative Urine Urobilinogen < 2.0 H Urine Leukocytes Negative Urine RBC 1 Urine WBC 4 Urine Mucus Occasional Ur Culture Indicated? Not indicated Blood Type O POSITIVE Antibody Screen Crossmatch Blood Bank Comment 04/22/17 04/22/17 04/22/17 11:00 11:00 10:56 WBC RBC Hgb Hct MCV MCH MCHC RDW Plt Count MPV Neut % (Auto) Lymph % (Auto) [place] % (Auto) Eos % (Auto) Baso % (Auto) Neut # (Auto) Lymph # (Auto) [place] # (Auto) Eos # (Auto) Baso # (Auto) Immature Gran % Nucleated RBC % Immature Gran # Nucleated RBCs # Immature Plt Fraction Haptoglobin 269.0 H Sodium Potassium Chloride Carbon Dioxide Anion Gap BUN Creatinine GFR Calculation BUN/Creatinine Ratio Glucose Calculated Osmolality Calcium Magnesium Iron TIBC % Saturation Total Bilirubin AST ALT Alkaline Phosphatase Lactate Dehydrogenase B-Natriuretic Peptide Total Protein 7.4 Albumin Globulin Albumin/Globulin Ratio Carcinoembryonic Ag PSA Diagnostic Vitamin B12 Folate Free T4 0.84 TSH 3rd Generation 1.350 Urine Color Urine Appearance Urine pH Ur Specific Dixon Urine Protein Urine Glucose (UA) Urine Ketones Urine Blood Urine Nitrate Urine Bilirubin Urine Urobilinogen Urine Leukocytes Urine RBC Urine WBC Urine Mucus Ur Culture Indicated? Blood Type O POSITIVE Antibody Screen Negative Crossmatch Blood Bank Comment 04/22/17 04/22/17 04/22/17 10:56 04:30 04:30 WBC RBC Hgb Hct MCV MCH MCHC RDW Plt Count MPV Neut % (Auto) Lymph % (Auto) [place] % (Auto) Eos % (Auto) Baso % (Auto) Neut # (Auto) Lymph # (Auto) [place] # (Auto) Eos # (Auto) Baso # (Auto) Immature Gran % Nucleated RBC % Immature Gran # Nucleated RBCs # Immature Plt Fraction Haptoglobin Sodium 139 Potassium 3.7 Chloride 101 Carbon Dioxide 28 Anion Gap 13.7 BUN 21 H Creatinine 1.10 GFR Calculation 81 BUN/Creatinine Ratio 19.00 Glucose 129 H Calculated Osmolality 281.5 Calcium 8.1 L Magnesium 2.3 Iron TIBC % Saturation Total Bilirubin 0.40 AST 31 ALT 22 Alkaline Phosphatase 63 Lactate Dehydrogenase B-Natriuretic Peptide 446 H Total Protein 6.9 Albumin 2.8 L Globulin 4.1 H Albumin/Globulin Ratio 0.6 L Carcinoembryonic Ag PSA Diagnostic Vitamin B12 Folate Free T4 TSH 3rd Generation Urine Color Urine Appearance Urine pH Ur Specific Dixon Urine Protein Urine Glucose (UA) Urine Ketones Urine Blood Urine Nitrate Urine Bilirubin Urine Urobilinogen Urine Leukocytes Urine RBC Urine WBC Urine Mucus Ur Culture Indicated? Blood Type Cancelled Antibody Screen Cancelled Crossmatch See Detail Blood Bank Comment Cancelled 04/22/17 04/22/17 04:27 04:27 WBC RBC Hgb Hct MCV MCH MCHC RDW Plt Count MPV Neut % (Auto) Lymph % (Auto) [place] % (Auto) Eos % (Auto) Baso % (Auto) Neut # (Auto) Lymph # (Auto) [place] # (Auto) Eos # (Auto) Baso # (Auto) Immature Gran % Nucleated RBC % Immature Gran # Nucleated RBCs # Immature Plt Fraction Haptoglobin Sodium Potassium Chloride Carbon Dioxide Anion Gap BUN Creatinine GFR Calculation BUN/Creatinine Ratio Glucose Calculated Osmolality Calcium Magnesium Iron 138 TIBC 364 % Saturation 37.9 Total Bilirubin AST ALT Alkaline Phosphatase Lactate Dehydrogenase 211 B-Natriuretic Peptide Total Protein Albumin Globulin Albumin/Globulin Ratio Carcinoembryonic Ag PSA Diagnostic Vitamin B12 418 Folate 6.9 Free T4 TSH 3rd Generation Urine Color Urine Appearance Urine pH Ur Specific Dixon Urine Protein Urine Glucose (UA) Urine Ketones Urine Blood Urine Nitrate Urine Bilirubin Urine Urobilinogen Urine Leukocytes Urine RBC Urine WBC Urine Mucus Ur Culture Indicated? Blood Type Antibody Screen Crossmatch Blood Bank Comment Preliminary micro results at discharge 04/21/17 17:46 Blood Culture - Preliminary Blood No growth at 1 day 04/21/17 17:46 Blood Culture - Preliminary Blood No growth at 1 day Improvement in hematocrit is noted. DS: Provider Date of admission: 04/21/17 17:00 Primary care physician: Lexx White MD Attending physician on admission: Lexx White MD Consults: 04/21/17 19:31 Consult to Case Mgmt/Social Srvs [CONS] Routine Reason for Case Mgmt/Social Srvs: Discharge Planning Consult to Physician [CONS] Routine Comment: Consulting Provider: Consult to Physician [CONS] Routine Comment: Anemia Consulting Provider: Nilay Dutta When should Consulting Provider be notified: In am Person Notified: Dr. Amor office Date Notified: 04/22/17 Time Notified: 08:40 Consult to Physician [CONS] Routine Comment: Shortness of breath Consulting Provider: Garfield Perez When should Consulting Provider be notified: In am Person Notified: phyllis Date Notified: 04/22/17 Time Notified: 08:45 04/22/17 07:17 Consult to Physician [CONS] Routine Comment: Consulting Provider: Cardiology - [facility] Person Notified: [facility] Date Notified: 04/22/17 Time Notified: 08:04 04/22/17 17:13 Consult to Case Mgmt/Social Srvs [CONS] Routine Reason for Case Mgmt/Social Srvs: Home Health Consult Comment: Nursing, education and CHF management Discharging clinician: Lexx White MD Expected date of discharge: 04/23/17
[2017-04-23 08:04] VITALS: BP 144/78
[2017-04-23] MEDS: PANTOPRAZOLE 40 MG VIAL IV SCH (09:59)
[2017-04-23] MEDS: FERROUS SULFATE 325 MG TABLET PO SCH (10:00)
[2017-04-23] MEDS: ROSUVASTATIN 10 MG TABLET PO SCH (10:00)
[2017-04-23] MEDS: LORATADINE 10 MG TABLET PO SCH (10:00)
[2017-04-23] MEDS: CHOLECALCIFEROL 1,000 UNIT TABLET PO SCH (10:00)
[2017-04-23] MEDS: FUROSEMIDE 20 MG/2 ML VIAL IV SCH (10:01)
[2017-04-23] MEDS: ATENOLOL 50 MG TABLET PO SCH (10:01)
[2017-04-23] MEDS: DOCUSATE SODIUM 100 MG CAPSULE PO SCH (10:01)
[2017-04-23] MEDS: POLYETHYLENE GLYCOL POWDER 17 GM PACK PO SCH (10:02)
--- NOTE | 2017-04-23 10:57 | Cardiology Progress Note ---
<Luz Arreola E - Last Filed: 04/23/17 10:48> Assessment and Plan - Time spent with patient Time spent with patient: Greater than 30 minutes (1) Acute dyspnea Status: Resolved Assessment and plan: SEE PLAN OF CARE LISTED BELOW (2) CHF (congestive heart failure) Status: Acute Assessment and plan: SEE PLAN OF CARE LISTED BELOW Qualifiers: Congestive heart failure type: diastolic Congestive heart failure chronicity: acute Qualified Code(s): I50.31 - Acute diastolic (congestive) heart failure (3) A-fib Status: Chronic Assessment and plan: SEE PLAN OF CARE LISTED BELOW Qualifiers: Atrial fibrillation type: chronic Qualified Code(s): I48.2 - Chronic atrial fibrillation (4) Anemia Status: Acute Assessment and plan: SEE PLAN OF CARE LISTED BELOW (5) Chronic anticoagulation Status: Chronic Assessment and plan: SEE PLAN OF CARE LISTED BELOW (6) CAD (coronary artery disease) Status: Chronic Assessment and plan: SEE PLAN OF CARE LISTED BELOW (7) History of coronary artery bypass surgery Status: Chronic Assessment and plan: SEE PLAN OF CARE LISTED BELOW (8) Hypertension Status: Chronic Assessment and plan: SEE PLAN OF CARE LISTED BELOW (9) Dyslipidemia Status: Chronic Assessment and plan: SEE PLAN OF CARE LISTED BELOW Cardiology - PN: Subj Interval history: PRIMARY DIRECTOR RELIGIOUS EDUCATION: DR. PRATT Mr. Galicia, 81M with past medical history significant for: CAD (CABG 17 years ago with CUEVAS to LAD, SVG to ramus intermedius, SVG to OM, SVG to PDA) hypertension, dyslipidemia, obesity, former tobacco use, history of PAF, atrial flutter, chronically anticoagulated with Coumadin. Dual-chamber pacemaker per Dr. Alvarado in January 2011. Other history includes carotid artery stenosis, iron deficiency anemia, prostate cancer, and osteoarthritis. He is status post left CEA in February 2017. Patient admitted April 21, 2017 with complaints of shortness of breath, congestion, and cough. EKG revealed atrial fibrillation, intermittent ventricular pacing, no acute ischemic change. Chest x-ray with mild pleural effusion but no significant pulmonary edema. Mildly elevated BNP, 190. Cardiac biomarkers negative. APRIL 23, 2017: Patient is doing well this morning. Dr. White has seen patient and agreeable for discharge. Breathing has improved. Echocardiogram reveals EF of 55-60%, no significant valvular abnormality, PAP 42.8 mmHg + RAP. Patient was significantly anemic and was transfused during this admission. His vital signs are stable this morning as are labs. Patient is being discharged home. Long discussion ensued regarding anticoagulation use, risks and benefits. Mr. Galicia states he is aware of the risk of bleeding and anemia and would rather take that risk than the risk of having a stroke. He will be given a follow-up appointment to see Dr. Pratt in approximately 4 weeks. He will continue his home medications to include Warfarin, Atenolol, Crestor, Triamterene/HCTZ. A cardiac standpoint, patient is stable for discharge. I will further discuss with Dr. Palacios and await additional recommendations ASSESSMENT/PLAN: 1. SOB - multifactorial to include bronchitis, possible CHF and was treated for such. Certainly, his anemia can contribute to this 2. ATRIAL FIBRILLATION - rate controlled. 3. HYPERTENSION - adequately controlled. Adjust medications accordingly 4. ANEMIA - improved after transfusion 5. CAD WITH HISTORY CABG - see details above 6. CHRONIC ANTICOAGULATION - patient wishes to continue using warfarin for stroke prevention 7. S/P PPM -stable 8. ACUTE CHF - secondary to diastolic dysfunction, NYHA class III on admission , class II at discharge Exam (Progress Note) - Constitutional Vitals: Period Temp Pulse Resp BP Sys/Webb Pulse Ox Last 24 Hr 97.9 F-98.7 F 62-78 18-20 123-183/60-110 94-100 Exam: General: [Appears well with no apparent distress.] [Pleasant and cooperative. ] [Appears comfortable.] HEENT: [PERRL, normocephalic, atraumatic. Mucous membranes moist. No jaundice noted. Conjunctiva moist and clear, sclerae anicteric] Neck: No JVD/HJR, no thyromegaly or lymphadenopathy noted. No carotid bruit appreciated Cardiac: [Irregularly irregular rhythm, controlled rate.] [No murmur rub or gallop.] Lungs: [Clear to auscultation without accessory muscle use to assist the respiratory pattern.] Not requiring oxygen Abdomen: Soft, bowel sounds normoactive. Nontender and nondistended. No abdominal bruit or thrill noted. No masses noted. Musculoskeletal: No fluid collection. Decreased range of motion is noted. Extremities: No clubbing, cyanosis noted. [ No edema noted.] Upper extremity pulses 2+. Lower extremity pulses 2+. Capillary refill less than 3 seconds. Skin: No unusual lesions or rashes. No skin breakdown appreciated. Neuro: Awake, alert and oriented 3. Moves all extremities well without hemiparesis or paralysis. No essential tremor is appreciated. Result/EKG - Labs CBC & BMP: 04/23/17 01:29 04/23/17 01:29 Lab Results: I have reviewed the past 24 hour labs Labs: Laboratory Results - last 24 hr 04/22/17 04/22/17 04/22/17 10:56 10:56 11:00 WBC RBC Hgb Hct MCV MCH MCHC RDW Plt Count MPV Neut % (Auto) Lymph % (Auto) [place] % (Auto) Eos % (Auto) Baso % (Auto) Neut # (Auto) Lymph # (Auto) [place] # (Auto) Eos # (Auto) Baso # (Auto) Immature Gran % Nucleated RBC % Immature Gran # Nucleated RBCs # Immature Plt Fraction Haptoglobin Sodium Potassium Chloride Carbon Dioxide Anion Gap BUN Creatinine GFR Calculation BUN/Creatinine Ratio Glucose Calculated Osmolality Calcium Magnesium Total Protein Carcinoembryonic Ag PSA Diagnostic Free T4 0.84 TSH 3rd Generation 1.350 Urine Color Urine Appearance Urine pH Ur Specific [place] Urine Protein Urine Glucose (UA) Urine Ketones Urine Blood Urine Nitrate Urine Bilirubin Urine Urobilinogen Urine Leukocytes Urine RBC Urine WBC Urine Mucus Ur Culture Indicated? Blood Type Cancelled O POSITIVE Antibody Screen Cancelled Negative Crossmatch See Detail Blood Bank Comment Cancelled 04/22/17 04/22/17 04/22/17 11:00 11:01 18:47 WBC RBC Hgb Hct MCV MCH MCHC RDW Plt Count MPV Neut % (Auto) Lymph % (Auto) [place] % (Auto) Eos % (Auto) Baso % (Auto) Neut # (Auto) Lymph # (Auto) [place] # (Auto) Eos # (Auto) Baso # (Auto) Immature Gran % Nucleated RBC % Immature Gran # Nucleated RBCs # Immature Plt Fraction Haptoglobin 269.0 H Sodium Potassium Chloride Carbon Dioxide Anion Gap BUN Creatinine GFR Calculation BUN/Creatinine Ratio Glucose Calculated Osmolality Calcium Magnesium Total Protein 7.4 Carcinoembryonic Ag < 0.5 PSA Diagnostic 2.2 Free T4 TSH 3rd Generation Urine Color Yellow Urine Appearance Clear Urine pH 6.0 Ur Specific [place] 1.012 Urine Protein Negative Urine Glucose (UA) Negative Urine Ketones Negative Urine Blood Negative Urine Nitrate Negative Urine Bilirubin Negative Urine Urobilinogen < 2.0 H Urine Leukocytes Negative Urine RBC 1 Urine WBC 4 Urine Mucus Occasional Ur Culture Indicated? Not indicated Blood Type Antibody Screen Crossmatch Blood Bank Comment 04/22/17 04/23/17 04/23/17 Unknown 01:29 01:29 WBC 8.3 RBC 3.24 L Hgb 9.4 L Hct 29.8 L MCV 92.0 MCH 29 MCHC 31.5 L RDW 15.1 Plt Count 169 D MPV 11.0 Neut % (Auto) 71.5 Lymph % (Auto) 17.3 L [place] % (Auto) 8.4 Eos % (Auto) 1.9 Baso % (Auto) 0.5 Neut # (Auto) 6.0 Lymph # (Auto) 1.4 [place] # (Auto) 0.7 Eos # (Auto) 0.2 Baso # (Auto) 0.0 Immature Gran % 0.4 Nucleated RBC % 0.0 Immature Gran # 0.03 Nucleated RBCs # 0.00 Immature Plt Fraction 0.0 Haptoglobin Sodium 140 Potassium 3.3 L Chloride 102 Carbon Dioxide 28 Anion Gap 13.3 BUN 23 H Creatinine 1.20 GFR Calculation 72 BUN/Creatinine Ratio 19.00 Glucose 101 Calculated Osmolality 282.4 Calcium 7.9 L Magnesium 2.3 Total Protein Carcinoembryonic Ag PSA Diagnostic Free T4 TSH 3rd Generation Urine Color Urine Appearance Urine pH Ur Specific [place] Urine Protein Urine Glucose (UA) Urine Ketones Urine Blood Urine Nitrate Urine Bilirubin Urine Urobilinogen Urine Leukocytes Urine RBC Urine WBC Urine Mucus Ur Culture Indicated? Blood Type O POSITIVE Antibody Screen Crossmatch Blood Bank Comment 04/23/17 01:29 WBC RBC Hgb 9.6 L Hct 29.6 L MCV MCH MCHC RDW Plt Count MPV Neut % (Auto) Lymph % (Auto) [place] % (Auto) Eos % (Auto) Baso % (Auto) Neut # (Auto) Lymph # (Auto) [place] # (Auto) Eos # (Auto) Baso # (Auto) Immature Gran % Nucleated RBC % Immature Gran # Nucleated RBCs # Immature Plt Fraction Haptoglobin Sodium Potassium Chloride Carbon Dioxide Anion Gap BUN Creatinine GFR Calculation BUN/Creatinine Ratio Glucose Calculated Osmolality Calcium Magnesium Total Protein Carcinoembryonic Ag PSA Diagnostic Free T4 TSH 3rd Generation Urine Color Urine Appearance Urine pH Ur Specific [place] Urine Protein Urine Glucose (UA) Urine Ketones Urine Blood Urine Nitrate Urine Bilirubin Urine Urobilinogen Urine Leukocytes Urine RBC Urine WBC Urine Mucus Ur Culture Indicated? Blood Type Antibody Screen Crossmatch Blood Bank Comment - Diagnostic Findings Procedure: Chest x-ray: report reviewed by me - EKG EKG results: interpreted by me EKG shows: atrial fibrillation Specialty Discharge - Follow Up or Referrals Follow up with: Charbel Ohara MD [Physician] - (1 month. CBC, BMP, magnesium. EKG) <Kalin Palacios - Last Filed: 04/23/17 15:07> Assessment and Plan (1) History of pacemaker Status: Acute (2) Normocytic anemia Status: Acute (3) Chronic anticoagulation Status: Chronic (4) Paroxysmal atrial fibrillation Status: Chronic (5) History of atrial flutter Status: Chronic (6) History of prostate cancer Status: Chronic (7) CAD (coronary artery disease) Status: Chronic (8) History of coronary artery bypass surgery Status: Chronic (9) Hypertension Status: Chronic (10) Dyslipidemia Status: Chronic (11) History of carotid artery stenosis Status: Chronic Exam (Progress Note) - Constitutional Vitals: Period Temp Pulse Resp BP Sys/Webb Pulse Ox Last 24 Hr 97.9 F-98.7 F 64-78 18-20 127-183/60-110 94-100 Result/EKG - Labs CBC & BMP: 04/23/17 01:29 04/23/17 01:29 Labs: Laboratory Results - last 24 hr 04/22/17 04/22/17 04/23/17 10:56 18:47 01:29 WBC 8.3 RBC 3.24 L Hgb 9.4 L Hct 29.8 L MCV 92.0 MCH 29 MCHC 31.5 L RDW 15.1 Plt Count 169 D MPV 11.0 Neut % (Auto) 71.5 Lymph % (Auto) 17.3 L [place] % (Auto) 8.4 Eos % (Auto) 1.9 Baso % (Auto) 0.5 Neut # (Auto) 6.0 Lymph # (Auto) 1.4 [place] # (Auto) 0.7 Eos # (Auto) 0.2 Baso # (Auto) 0.0 Immature Gran % 0.4 Nucleated RBC % 0.0 Immature Gran # 0.03 Nucleated RBCs # 0.00 Immature Plt Fraction 0.0 Sodium Potassium Chloride Carbon Dioxide Anion Gap BUN Creatinine GFR Calculation BUN/Creatinine Ratio Glucose Calculated Osmolality Calcium Magnesium Urine Color Yellow Urine Appearance Clear Urine pH 6.0 Ur Specific [place] 1.012 Urine Protein Negative Urine Glucose (UA) Negative Urine Ketones Negative Urine Blood Negative Urine Nitrate Negative Urine Bilirubin Negative Urine Urobilinogen < 2.0 H Urine Leukocytes Negative Urine RBC 1 Urine WBC 4 Urine Mucus Occasional Ur Culture Indicated? Not indicated Blood Type Cancelled Antibody Screen Cancelled Crossmatch See Detail Blood Bank Comment Cancelled 04/23/17 04/23/17 01:29 01:29 WBC RBC Hgb 9.6 L Hct 29.6 L MCV MCH MCHC RDW Plt Count MPV Neut % (Auto) Lymph % (Auto) [place] % (Auto) Eos % (Auto) Baso % (Auto) Neut # (Auto) Lymph # (Auto) [place] # (Auto) Eos # (Auto) Baso # (Auto) Immature Gran % Nucleated RBC % Immature Gran # Nucleated RBCs # Immature Plt Fraction Sodium 140 Potassium 3.3 L Chloride 102 Carbon Dioxide 28 Anion Gap 13.3 BUN 23 H Creatinine 1.20 GFR Calculation 72 BUN/Creatinine Ratio 19.00 Glucose 101 Calculated Osmolality 282.4 Calcium 7.9 L Magnesium 2.3 Urine Color Urine Appearance Urine pH Ur Specific [place] Urine Protein Urine Glucose (UA) Urine Ketones Urine Blood Urine Nitrate Urine Bilirubin Urine Urobilinogen Urine Leukocytes Urine RBC Urine WBC Urine Mucus Ur Culture Indicated? Blood Type Antibody Screen Crossmatch Blood Bank Comment
[2017-04-25 06:17] LABS: Albumin (SPE) 3.8 G/DL (3.2-5.3); Albumin (SPE) Rel % 50.4 %; Alpha 1 (SPE) 0.3 G/DL (0.1-0.4); Alpha 1 (SPE) Rel % 4.4 %; Alpha 2 (SPE) Rel % 13.4 %; Gamma (SPE) 1.3 G/DL (0.7-1.7); Gamma (SPE) Rel % 17.8 %; Total Protein (Chem) 7.4 G/DL (6.4-8.3)
== END 2017-04-23 10:47 | disposition home health service (06) | DRG 811 ==
LOC: N.ED 13:26 → N.EDINP 17:00 → N.TELES 19:07
PROVIDERS: ADMIT Family Medicine; ATTEND Family Medicine

== ENCOUNTER 2018-01-04 13:19 | Observation (INO) ==
[2018-01-04] MEDS ORDERED: FUROSEMIDE 100 MG/10 ML VIAL IV STA (14:05)
[2018-01-04] MEDS ORDERED: FUROSEMIDE 40 MG/4 ML VIAL ONE (14:23)
[2018-01-04 15:24] LABS: Basophils % 0.3 % (0.0-0.8); Eosinophils # 0.3 10*3/uL (0.0-0.87); Eosinophils % 4.2 % (0.00-10.9); Hematocrit 34.4 VOL% (42.0-52.0); Immature Granulocytes % 0.3 %; Immature Granulocytes Absolute 0.02 #; Lymphocytes % 16.3 % (21.2-54.2); Mean Corpuscular Hemoglobin 30 PG (27-34); Mean Corpuscular Volume 94.8 FL (87-102); Monocytes # 0.5 10*3/uL (0.11-0.8); Monocytes % 7.4 % (1.7-12.7); Neutrophils # 4.4 10*3/uL (1.4-7.4); Neutrophils % 71.5 % (38.7-73.9); Platelet Count 133 T/CUMM (130-400); Red Blood Count 3.63 MC/CUMM (3.8-5.5); Red Cell Distribution Width 15.2 % (9.3-17.3); White Blood Count 6.2 T/CUMM (4-12)
[2018-01-04 15:36] LABS: INR 1.8; PT Patient Result 18.6 SECS; Partial Thromboplastin Time 33.4 SECS (0-40)
[2018-01-04 15:50] LABS: Alanine Aminotransferase 15 U/L (16-61); Albumin 3.6 G/DL (3.4-5.0); Alkaline Phosphatase 68 U/L (45-117); Aspartate Amino Transferase 26 U/L (0-37); Blood Urea Nitrogen 14 MG/DL (7-18); Calcium 8.7 MG/DL (8.5-10.1); Glucose 102 MG/DL (74-106); Osmolality,Calculated 279.4 MOS/KG (273-304); Potassium 3.9 MMOL/L (3.5-5.1); Sodium 140 MMOL/L (136-145); Total Protein 8.3 G/DL (6.4-8.3); Troponin I Only < 0.015 NG/ML (0.00-0.045)
[2018-01-04 15:56] LABS: Apearance,Urine HAZY (Clear); Urine Color Yellow (Yellow)
[2018-01-04 15:57] LABS: Bilirubin,Urine Negative (Negative); Blood, Urine Negative (Negative); Glucose,Urine (UA) Negative (Negative); Ketones,Urine Negative (Negative); Nitrite,Urine Positive (Negative); Protein,Urine Negative
[2018-01-04 15:59] LABS: Amorphous Crystals,Urine Moderate /HPF (Few); RBC,Urine 0-3 /HPF (0-4)
[2018-01-04 16:00] LABS: Bacteria,Urine Trace /HPF (Few)
[2018-01-04] MEDS ORDERED: ONDANSETRON 4 MG/2 ML VIAL IV PRN (17:21)
[2018-01-04] MEDS ORDERED: ACETAMINOPHEN 325 MG TABLET PO PRN (17:21)
[2018-01-04] MEDS: SODIUM CHLORIDE 0.9% 1,000 ML IV SCH (17:35)
[2018-01-04] MEDS: DOCUSATE SODIUM 100 MG CAPSULE PO SCH (20:37)
[2018-01-05] MEDS: SODIUM CHLORIDE 0.9% 1,000 ML IV SCH (06:17)
[2018-01-05] MEDS: FUROSEMIDE 100 MG/10 ML VIAL IV SCH (09:31)
[2018-01-05] MEDS: DOCUSATE SODIUM 100 MG CAPSULE PO SCH ×2 (09:31→20:34)
[2018-01-05] MEDS: LORATADINE 10 MG TABLET PO SCH (09:31)
[2018-01-05] MEDS: ROSUVASTATIN 10 MG TABLET PO SCH (09:31)
[2018-01-05] MEDS: FERROUS SULFATE 325 MG TABLET PO SCH ×2 (09:31→20:35)
[2018-01-05] MEDS: POTASSIUM GLUCONATE 500 MG TABLET PO SCH (09:31)
[2018-01-05] MEDS: PANTOPRAZOLE 40 MG TABLET PO SCH (09:31)
[2018-01-05] MEDS: ATENOLOL 50 MG TABLET PO SCH (09:32)
[2018-01-05] MEDS: CHOLECALCIFEROL 1,000 UNIT TABLET PO SCH (09:32)
[2018-01-05 10:04] LABS: Thyroid Stimulating Hormone 4.08 uIU/ml (0.358-3.74)
[2018-01-05] MEDS: LOSARTAN 25 MG TABLET PO SCH (14:45)
[2018-01-05] MEDS: ASPIRIN EC 81 MG TABLET PO SCH (14:45)
[2018-01-05] MEDS ORDERED: WARFARIN 5 MG TABLET PO SCH (18:00)
[2018-01-05] MEDS ORDERED: NON-FORMULARY MEDICATION (Omeprazole [Prilosec] 20 MG) PO SCH (21:00)
[2018-01-06 05:48] LABS: Basophils # 0.1 10*3/uL (0.0-0.2); Basophils % 0.8 % (0.0-0.8); Eosinophils # 0.4 10*3/uL (0.0-0.87); Eosinophils % 5.5 % (0.00-10.9); Hematocrit 33.8 VOL% (42.0-52.0); Hemoglobin 11.3 GM/DL (14.0-18.0); Immature Granulocytes % 0.4 %; Immature Granulocytes Absolute 0.03 #; Lymphocytes # 0.9 10*3/uL (1.4-4.0); Lymphocytes % 11.6 % (21.2-54.2); Mean Corpuscular HGB Conc 33.4 GM/DL (32-36); Mean Corpuscular Hemoglobin 31 PG (27-34); Mean Corpuscular Volume 91.1 FL (87-102); Mean Platelet Volume 11.1 FL (9.6-12.0); Monocytes # 0.6 10*3/uL (0.11-0.8); Monocytes % 8.3 % (1.7-12.7); Neutrophils # 5.6 10*3/uL (1.4-7.4); Neutrophils % 73.4 % (38.7-73.9); Platelet Count 163 T/CUMM (130-400); Red Blood Count 3.71 MC/CUMM (3.8-5.5); Red Cell Distribution Width 15.3 % (9.3-17.3); White Blood Count 7.6 T/CUMM (4-12)
[2018-01-06 05:53] LABS: INR 1.4; PT Patient Result 14.9 SECS
[2018-01-06 06:11] LABS: Calcium 8.2 MG/DL (8.5-10.1); Osmolality,Calculated 279.4 MOS/KG (273-304); Potassium 3.5 MMOL/L (3.5-5.1)
[2018-01-06 06:16] LABS: Risk Ratio 2.2
[2018-01-06] MEDS: FUROSEMIDE 100 MG/10 ML VIAL IV SCH (08:48)
[2018-01-06] MEDS: ASPIRIN EC 81 MG TABLET PO SCH (08:48)
[2018-01-06] MEDS: ATENOLOL 50 MG TABLET PO SCH (08:49)
[2018-01-06] MEDS: FERROUS SULFATE 325 MG TABLET PO SCH (08:49)
[2018-01-06] MEDS: DOCUSATE SODIUM 100 MG CAPSULE PO SCH (08:49)
[2018-01-06] MEDS: CHOLECALCIFEROL 1,000 UNIT TABLET PO SCH (08:49)
[2018-01-06] MEDS: LOSARTAN 25 MG TABLET PO SCH (08:49)
[2018-01-06] MEDS: ROSUVASTATIN 10 MG TABLET PO SCH (08:49)
[2018-01-06] MEDS: PANTOPRAZOLE 40 MG TABLET PO SCH (08:49)
[2018-01-06] MEDS: LORATADINE 10 MG TABLET PO SCH (08:49)
[2018-01-06] MEDS: POTASSIUM GLUCONATE 500 MG TABLET PO SCH (08:50)
[2018-01-06] MEDS ORDERED: ENOXAPARIN 40 MG/0.4 ML SYRINGE SUBCUT ONE (11:02)
[2018-01-06] MEDS ORDERED: SPIRONOLACTONE 25 MG TABLET PO SCH (11:30)
[2018-01-06 11:36] VITALS: BP 120/78
[2018-01-06] MEDS ORDERED: WARFARIN 2.5 MG TABLET PO ONE (18:00)
[2018-01-06] MEDS ORDERED: WARFARIN 7.5 MG TABLET PO SCH (18:00)
[2018-01-07] MEDS ORDERED: SPIRONOLACTONE 25 MG TABLET PO SCH (09:00)
== END 2018-01-06 14:32 | disposition home or self-care (01) ==
LOC: N.ED 13:19 → N.EDINP 13:19 → N.2E 17:05
PROVIDERS: ADMIT Family Medicine; ATTEND Family Medicine